=== PATIENT | male | born 1970 | race Caucasian/White ===

== ENCOUNTER 2016-12-07 10:40 | Inpatient (IN) | payer BC ==
[2016-12-07] MEDS ORDERED: Aspirin Low Dose CHEW TAB* 81 MG PO ONE (11:53)
[2016-12-07] MEDS ORDERED: NS 0.9% 1000 ML* 1,000 ML IV SCH (12:00)
[2016-12-07 12:01] LABS: Hematocrit 50 % (42-52); Mean Corpuscular HGB Conc 34 g/dl (31-36); Mean Corpuscular Hemoglobin 30 pg (27-31); Mean Corpuscular Volume 87 fL (80-94); Mean Platelet Volume 10 um3 (7.4-10.4); Red Blood Count 5.73 10^6/ul (4.0-5.4); Red Cell Distribution Width 14 % (10.5-15); White Blood Count 8.1 10^3/ul (3.5-10.8)
[2016-12-07 12:03] LABS: Urine Bilirubin Negative (Negative); Urine Glucose Negative (Negative); Urine Nitrite Negative (Negative)
[2016-12-07 12:14] LABS: Albumin 4.1 g/dL (3.2-5.2); BUN/Creatinine Ratio 10.7 (8-20); C Reactive Protein 2.78 mg/L (< 5.00); EGFR African American 127.7 (>60); EGFR Non-African American 99.3 (>60); Globulin 2.9 g/dL (2-4); Magnesium 2.2 mg/dL (1.9-2.7); Potassium 4.1 mmol/L (3.5-5.0); Total Bilirubin 0.7 mg/dL (0.2-1.0)
[2016-12-07 12:15] LABS: Troponin I 0.01 ng/mL (<0.04)
--- NOTE | 2016-12-07 12:25 | RAD ---
INDICATION: Chest pain. COMPARISON: Comparison is made with a prior chest x-ray study from August 28, 2015 TECHNIQUE: A portable view of the chest was obtained. FINDINGS: Cardiac and mediastinal contours appear to be within normal limits. The lungs are clear. No pleural effusion is seen. IMPRESSION: NO EVIDENCE FOR ACUTE DISEASE.
[2016-12-07 12:27] LABS: TSH (Thyroid Stimulating Horm) 2.04 mcIU/mL (0.34-5.60)
[2016-12-07] MEDS: Nicotine PATCH 21 MG/24 HR* PATCH TRANSDERM SCH (13:48)
--- NOTE | 2016-12-07 14:00 | ED ---
Frederick Pop Billy, scribed for Horace De Jesus MD on 12/07/16 at 1151 . HPI Chest Pain - HPI Summary HPI Summary: Patient is a 46 year-old male coming to [facility] for evaluation of intermittent chest pain for the last 4 days, worse today. Patient reports midsternal sharp, burning episodes lasting approximately 3-5 minutes. His episodes are more frequent and worse in severity in the mornings. Severity 8/10 at its worst. Pain radiates to the left arm and jaw. He reports shortness of breath and mild lightheadedness. Denies nausea or diaphoresis. Denies abdominal pain or leg pain /swelling. Denies history of blood clots. Family history is significant for cardiac disease. Patient also reports that he has uncontrolled atrial fibrillation. Patient takes 81mg ASA daily. He has not had any stress tests in the last 10 years, last stress test approximately 12 years ago. - History of Current Complaint Chief Complaint: EDChestPainROMI Time Seen by Provider: 12/07/16 11:46 Hx Obtained From: Patient Onset/Duration: Started Days Ago, Worse Since - this morning at 0630 Time of Onset: 06:30 Timing: Intermittent Initial Severity: Moderate Current Severity: Moderate Pain Intensity: 8 Pain Scale Used: 0-10 Numeric Chest Pain Location: Mid Sternal Chest Pain Radiates: Yes Chest Pain Radiates To:: Arm, Neck Character: Burning, Sharp/Stabbing Aggravating Factor(s): Nothing Alleviating Factor(s): Nothing Associated Signs and Symptoms: Positive: Chest Pain, Shortness of Breath, Lightheadedness. Negative: Diaphoresis, Nausea - Allergy/Home Medications Allergies/Adverse Reactions: Allergies Allergy/AdvReac Type Severity Reaction Status Date / Time Codeine Allergy Intermediate Rash Verified 12/07/16 12:01 PMH/Surg Hx/FS Hx/Imm Hx Endocrine/Hematology History: Denies: Hx Diabetes Cardiovascular History: Reports: Hx Hypercholesterolemia, Hx Hypertension, Other Cardiovascular Problems/Disorders - NEW ONSET A FIB Denies: Hx Congestive Heart Failure Respiratory History: Reports: Hx Asthma History: Denies: Hx Renal Disease Musculoskeletal History: Reports: Hx Arthritis - LEFT SHOULDER, Hx Back Problems - pt reports lower back pain and spasms Neurological History: Reports: Hx Headaches Psychiatric History: Reports: Hx Anxiety, Hx Depression Denies: Hx Panic Disorder - Surgical History Surgery Procedure, Year, and Place: RIGHT FOOT X3. LEFT WRIST Infectious Disease History: No Infectious Disease History: Denies: Traveled Outside the [place] in Last 30 Days - Family History Known Family History: Positive: Cardiac Disease - Both parents and grandparents with heart disease. - Social History Alcohol Use: Daily Alcohol Amount: 6 pk beer Substance Use Type: Reports: None Smoking Status (MU): Heavy Every Day Tobacco Smoker Type: Cigarettes Amount Used/How Often: 2 PPD Review of Systems Negative: Skin Diaphoresis Positive: Chest Pain Positive: Shortness Of Breath Negative: Nausea All Other Systems Reviewed And Are Negative: Yes Physical Exam Triage Information Reviewed: Yes Vital Signs On Initial Exam: Initial Vitals Temp Pulse Resp BP Pulse Ox 96.6 F 77 16 156/91 100 12/07/16 10:43 12/07/16 10:43 12/07/16 10:43 12/07/16 10:43 12/07/16 10:43 Vital Signs Reviewed: Yes Appearance: Positive: Well-Appearing, No Pain Distress Skin: Positive: Warm, Skin Color Reflects Adequate Perfusion, Dry Head/Face: Positive: Normal Head/Face Inspection Eyes: Positive: EOMI, IZABELLA ENT: Positive: Normal ENT inspection Neck: Positive: Supple, Nontender Respiratory/Lung Sounds: Positive: Clear to Auscultation, Breath Sounds Present Cardiovascular: Positive: RRR Abdomen Description: Positive: Nontender, Soft Bowel Sounds: Positive: Present Musculoskeletal: Positive: Normal, Strength/ROM Intact Neurological: Positive: Normal, Sensory/Motor Intact, Alert, Oriented to Person Place, Time Psychiatric: Positive: Affect/Mood Appropriate Diagnostics - Vital Signs Vital Signs Temp Pulse Resp BP Pulse Ox 12/07/16 11:06 62 12/07/16 11:00 77 14 152/99 98 12/07/16 10:58 74 12 98 12/07/16 10:56 145/83 12/07/16 10:43 96.6 F 77 16 156/91 100 - Laboratory Lab Results: Lab Results 12/07/16 12/07/16 12/07/16 Range/Units 11:29 11:29 11:29 WBC 8.1 (3.5-10.8) 10^3/ul RBC 5.73 H (4.0-5.4) 10^6/ul Hgb 17.0 (14.0-18.0) g/dl Hct 50 (42-52) % MCV 87 (80-94) fL MCH 30 (27-31) pg MCHC 34 (31-36) g/dl RDW 14 (10.5-15) % Plt Count 156 (150-450) 10^3/ul MPV 10 (7.4-10.4) um3 Neut % (Auto) 61.4 (38-83) % Lymph % (Auto) 24.3 L (25-47) % [place] % (Auto) 7.9 (1-9) % Eos % (Auto) 4.4 (0-6) % Baso % (Auto) 2.0 (0-2) % Absolute Neuts (auto) 5.0 (1.5-7.7) 10^3/ul Absolute Lymphs (auto) 2.0 (1.0-4.8) 10^3/ul Absolute Monos (auto) 0.6 (0-0.8) 10^3/ul Absolute Eos (auto) 0.4 (0-0.6) 10^3/ul Absolute Basos (auto) 0.2 (0-0.2) 10^3/ul Absolute Nucleated RBC 0.01 10^3/ul Nucleated RBC % 0.1 INR (Anticoag Therapy) 0.86 L (0.89-1.11) APTT 26.3 (26.0-36.3) seconds D-Dimer, Quantitative < 200 (Less Than 230) ng/mL Sodium (133-145) mmol/L Potassium (3.5-5.0) mmol/L Chloride (101-111) mmol/L Carbon Dioxide (22-32) mmol/L Anion Gap (2-11) mmol/L BUN (6-24) mg/dL Creatinine (0.67-1.17) mg/dL Est GFR ( Amer) (>60) Est GFR (Non-Af Amer) (>60) BUN/Creatinine Ratio (8-20) Glucose (70-100) mg/dL Lactic Acid (0.5-2.0) mmol/L Calcium (8.6-10.3) mg/dL Magnesium (1.9-2.7) mg/dL Total Bilirubin (0.2-1.0) mg/dL AST (13-39) U/L ALT (7-52) U/L Alkaline Phosphatase (34-104) U/L Total Creatine Kinase (10-223) U/L CK-MB (CK-2) (0.6-6.3) ng/mL Troponin I (<0.04) ng/mL C-Reactive Protein (< 5.00) mg/L B-Natriuretic Peptide 13 ( - 100) pg/mL Total Protein (6.4-8.9) g/dL Albumin (3.2-5.2) g/dL Globulin (2-4) g/dL Albumin/Globulin Ratio (1-3) Lipase (11.0-82.0) U/L TSH (0.34-5.60) mcIU/mL Urine Color Urine Appearance Urine pH (5-9) Ur Specific [place] (1.010-1.030) Urine Protein (Negative) Urine Ketones (Negative) Urine Blood (Negative) Urine Nitrate (Negative) Urine Bilirubin (Negative) Urine Urobilinogen (Negative) Ur Leukocyte Esterase (Negative) Urine Glucose (Negative) 12/07/16 12/07/16 12/07/16 Range/Units 11:29 11:29 11:29 WBC (3.5-10.8) 10^3/ul RBC (4.0-5.4) 10^6/ul Hgb (14.0-18.0) g/dl Hct (42-52) % MCV (80-94) fL MCH (27-31) pg MCHC (31-36) g/dl RDW (10.5-15) % Plt Count (150-450) 10^3/ul MPV (7.4-10.4) um3 Neut % (Auto) (38-83) % Lymph % (Auto) (25-47) % [place] % (Auto) (1-9) % Eos % (Auto) (0-6) % Baso % (Auto) (0-2) % Absolute Neuts (auto) (1.5-7.7) 10^3/ul Absolute Lymphs (auto) (1.0-4.8) 10^3/ul Absolute Monos (auto) (0-0.8) 10^3/ul Absolute Eos (auto) (0-0.6) 10^3/ul Absolute Basos (auto) (0-0.2) 10^3/ul Absolute Nucleated RBC 10^3/ul Nucleated RBC % INR (Anticoag Therapy) (0.89-1.11) APTT (26.0-36.3) seconds D-Dimer, Quantitative (Less Than 230) ng/mL Sodium 135 (133-145) mmol/L Potassium 4.1 (3.5-5.0) mmol/L Chloride 105 (101-111) mmol/L Carbon Dioxide 25 (22-32) mmol/L Anion Gap 5 (2-11) mmol/L BUN 9 (6-24) mg/dL Creatinine 0.84 (0.67-1.17) mg/dL Est GFR ( Amer) 127.7 (>60) Est GFR (Non-Af Amer) 99.3 (>60) BUN/Creatinine Ratio 10.7 (8-20) Glucose 95 (70-100) mg/dL Lactic Acid 0.9 (0.5-2.0) mmol/L Calcium 9.0 (8.6-10.3) mg/dL Magnesium 2.2 (1.9-2.7) mg/dL Total Bilirubin 0.70 (0.2-1.0) mg/dL AST 22 (13-39) U/L ALT 23 (7-52) U/L Alkaline Phosphatase 76 (34-104) U/L Total Creatine Kinase 110 (10-223) U/L CK-MB (CK-2) 1.9 (0.6-6.3) ng/mL Troponin I 0.01 (<0.04) ng/mL C-Reactive Protein 2.78 (< 5.00) mg/L B-Natriuretic Peptide ( - 100) pg/mL Total Protein 7.0 (6.4-8.9) g/dL Albumin 4.1 (3.2-5.2) g/dL Globulin 2.9 (2-4) g/dL Albumin/Globulin Ratio 1.4 (1-3) Lipase 58 (11.0-82.0) U/L TSH 2.04 (0.34-5.60) mcIU/mL Urine Color Yellow Urine Appearance Clear Urine pH 5.0 (5-9) Ur Specific [place] 1.004 L (1.010-1.030) Urine Protein Negative (Negative) Urine Ketones Negative (Negative) Urine Blood Negative (Negative) Urine Nitrate Negative (Negative) Urine Bilirubin Negative (Negative) Urine Urobilinogen Negative (Negative) Ur Leukocyte Esterase Negative (Negative) Urine Glucose Negative (Negative) Result Diagrams: 12/07/16 11:29 12/07/16 11:29 Lab Statement: Any lab studies that have been ordered have been reviewed, and results considered in the medical decision making process. - Radiology CXR Xray Interpretation: No Acute Changes Radiology Interpretation Completed By: Radiologist - EKG 1050 Cardiac Rate: NL - 77 bpm EKG Rhythm: Sinus Rhythm Ectopy: None EKG Interpretation: ST elevation in V1-V3 that appears to be early repol, TWI in III Re-Evaluation - Re-Evaluation First Eval Re-Evaluation Time: 13:20 Comment: Labs and imaging reviewed. Agrees with plan for admission. Chest Pain Course/Dx - Course Course Of Treatment: NO CRITICAL CARE TIME. Assessment/Plan: WELL IN ED. ADMIT HOSPITALIST STABLE. - Diagnoses Provider Diagnoses: Chest pain - Provider Notifications Discussed Care Of Patient With: Dr. Clark (hospitalist) @ [id number]: accepts admission. Discharge - Discharge Plan Condition: Stable Disposition: ADMITTED TO [facility] Referrals: Paulo Rangel MD [Primary Care Provider] - The documentation as recorded by the Frederick gutiérrez Billy accurately reflects the service I personally performed and the decisions made by me, Horace De Jesus MD.
[2016-12-07] MEDS ORDERED: Acetaminophen TAB* 325 MG PO PRN (15:10)
[2016-12-07] MEDS ORDERED: Ondansetron INJ* 2 MG/ML VIAL IV PRN (15:10)
[2016-12-07] MEDS ORDERED: Albuterol 2.5 MG/3 ML NEB.SOL* (0.083%) INH PRN (15:18)
[2016-12-07] MEDS ORDERED: Mouth Piece, Nicotine* 1 EACH CARTRIDGE INH PRN (15:25)
[2016-12-07] MEDS ORDERED: Mouth Piece, Nicotine* 1 EACH CARTRIDGE ONE (15:38)
[2016-12-07] MEDS ORDERED: Nicotine Inhaler* 10 MG AMP ONE (15:38)
[2016-12-07] MEDS: Nicotine Inhaler* 10 MG AMP INH PRN (15:41)
[2016-12-07] MEDS ORDERED: Mouth Piece, Nicotine* 1 EACH CARTRIDGE INH ONE (16:00)
[2016-12-07] MEDS ORDERED: LORazepam TAB(*) 1 MG PO SCH (16:00)
[2016-12-07 16:07] LABS: EGFR African American 117.9 (>60); EGFR Non-African American 91.7 (>60)
[2016-12-07] MEDS: Sucralfate TAB* 1 GM PO SCH (16:41)
[2016-12-07] MEDS: Nicotine Patch Removal NOTE FOLLOW UP SCH (21:50)
[2016-12-07] MEDS: Heparin VIAL(*) 5000 UNITS/ML VIAL (FIVE THOUSAND) SUBCUT SCH (21:53)
--- NOTE | 2016-12-07 22:06 | HP ---
HISTORY AND PHYSICAL: DATE OF ADMISSION: 12/07/16 PRIMARY CARE PROVIDER: Dr. Rangel. ATTENDING PHYSICIAN WHILE IN THE HOSPITAL: Ema Paiz MD* (report dictated by Robin Sotomayor NP). CHIEF COMPLAINT: Chest pain. HISTORY OF PRESENT ILLNESS: Mr. Donnelly is a 46-year-old male patient with a history of hypertension, hyperlipidemia, asthma, depression, AFib, and a history of back pain. He comes into the ER today stating in the last 3 days he has had intermittent chest discomfort starting in the center of his chest, described as a burning pain that radiates up into his jaw and down his arm. He says it is not associated with any activities as it can happen at any time. He denies any association with food and he says the duration lasts for seconds to minutes and the severity was worse today and that is why he decided to come in to be evaluated. He denied having any associated nausea, shortness of breath, or any abdominal pain and he denied becoming diaphoretic. He came in to the ED , was evaluated, and there was concern that this could represent ACS, so we were asked to evaluate for admission. He says the pain is gone now. He says that he had no relief with taking any GI medicine such as omeprazole which he tried today. There was concern because of his history of smoking, family history, and we were asked to evaluate for admission. PAST MEDICAL HISTORY: Significant for: 1. Hypertension. 2. Hyperlipidemia. 3. Asthma. 4. Depression. 5. AFib. 6. Chronic back pain. PAST SURGICAL HISTORY: 1. He has a history of foot surgery. 2. In addition to this, ORIF of his bilateral upper extremities. HOME MEDICATIONS: This is what he says he is takin. Aspirin 81 mg daily. 2. Lisinopril 10 mg daily. ALLERGIES TO MEDICATIONS: Include CODEINE. FAMILY HISTORY: His mother had hypertension. Father has a history of coronary artery disease. SOCIAL HISTORY: He is a 6-azqw-a-day smoker for about 20 years. History of cocaine use, but he says he has not used this in several years. Surrogate decision maker is his father and he is a forklift driver. REVIEW OF SYSTEMS: There is no documented fever. He denied having any significant weight change. There is no double vision. There is no ear discharge. He denies having any rhinorrhea. No sore throat. No thyroid enlargement. There is chest pain per my HPI. No orthopnea. No nocturnal dyspnea. There is no dyspnea on exertion. There is no abdominal pain. No nausea. No vomiting. No dysuria. No frequency. No seizure. No loss of consciousness. No pruritus and no skin ulcerations. Review of 14 systems completed, all others negative. PHYSICAL EXAMINATION GENERAL: At this time, Mr. Donnelly is a 46-year-old male patient. He is sitting in the hospital bed. He does not appear to be in any acute distress. VITAL SIGNS: Blood pressure 125/75, pulse 71, respirations 18, O2 sat 95%, and temperature 96.6. HEENT: Head: Atraumatic and normocephalic. Eyes: EOMs intact. Sclerae are anicteric and not pale. Throat: Oral mucosa appears to be moist. No oropharyngeal erythema. NECK: Supple. LUNGS: Clear to auscultation. No wheezes, rales, or rhonchi. HEART: Sounds S1, S2. Regular rate and rhythm. No murmurs, rubs, or gallops. ABDOMEN: Soft, flat, and nontender. Bowel sounds present. EXTREMITIES: Pulses 2+ throughout. No peripheral edema. NEUROLOGIC: He is awake, he is alert, he is oriented x3. Tongue midline. Transmitter Engineer are equal. No gross focal deficits. SKIN: Intact. LABORATORY DATA AND DIAGNOSTIC STUDIES: Today revealed WBC of 8.1, RBC of 5.73 , hemoglobin 17.0, hematocrit of 50, platelet count of 156. INR was 0.86. PTT of 26.3. D-dimer less than 200. Sodium 135, potassium 4.1, chloride of 105, bicarb 25, BUN 9, creatinine of 0.84, glucose 95, lactic 0.9, calcium 9.0, magnesium 2.2. Total bilirubin 0.7, AST 22, ALT 23, alk phos 76. CK 110. Troponin 0.01. TSH of 2.04. Urine was obtained, negative. He had a chest x-ray obtained today which revealed no evidence for acute disease. There was an EKG obtained today which showed a normal sinus rhythm, rate of 77. Inverted T wave in lead 3. He has J-point elevation in V5, but only one inflated in V6, looks like early repolarization. No significant changes are noted from the previous EKG, although he is not in atrial fibrillation currently. This was reviewed with the previous EKG, has had this elevation in the past. Old medical records were reviewed. ASSESSMENT AND PLAN: Mr. Donnelly is a 46-year-old male patient coming into the ER today with complaints of chest discomfort described as a burning, pressure, starting in the chest, going up the jaw and down the arm. Hospitalist service was asked to evaluate in admission. He will be admitted under observation status for: 1. Chest pain: At this point, this does not sound like it is cardiac. It sounds as if the pain is GI related, although he does have significant risk factors, so I think it is warranted to go ahead and do a stress test, troponins , EKG, and telemetry. We will start him on a baby aspirin. I am also going to put him on Carafate and a PPI to make sure to see if this helps. If the cardiac workup is negative, he will probably need an EGD, but this can be done as an outpatient. 2. Hypertension: Continue medications as prescribed. 3. Atrial fibrillation: Currently in sinus rhythm. He will need to follow with his primary. We will monitor him on telemetry. 4. History of chronic back pain: Continue current medical regimen. 5. Hyperlipidemia: We will check a lipid panel for the time being. 6. Asthma: Albuterol p.r.n. has been ordered. 7. Depression: Continue supportive care. 8. Bradycardia episode: He did have an episode where he went down to 58 when he was having the pain in the ED. It looked like a sinus rhythm. The plan at this point is just to monitor, he was asymptomatic. I suspect this is probably a vagal reaction due to the fact that he was having pain when it happened. We will just need to monitor. 9. DVT prophylaxis: He will be placed on heparin subcu. 10. Fluids, electrolytes, and nutrition: He can have a heart healthy diet. He is n.p.o. after midnight. 11. Code status: Full code. TIME SPENT: Time spent on the admission was 60 minutes; greater than half the time was spent [id number] with the patient obtaining my history and physical, other half of the time spent going over the plan of care with the patient and implementing plan of care. I did discuss the plan of care with my attending, Dr. Paiz; she is in agreement. ROBIN SOTOMAYOR NP CC: Dr. Rangel * [id number]/CPS #: [id number] STEPHANIE
[2016-12-08 04:52] LABS: Hematocrit 46 % (42-52); Mean Corpuscular HGB Conc 35 g/dl (31-36); Mean Corpuscular Hemoglobin 31 pg (27-31); Mean Corpuscular Volume 88 fL (80-94); Mean Platelet Volume 11 um3 (7.4-10.4); Red Blood Count 5.25 10^6/ul (4.0-5.4); Red Cell Distribution Width 15 % (10.5-15)
[2016-12-08 05:08] LABS: BUN/Creatinine Ratio 14.6 (8-20); EGFR African American 119.4 (>60); EGFR Non-African American 92.9 (>60); HDL Cholesterol 27.8 mg/dL
[2016-12-08 05:14] LABS: Potassium 3.9 mmol/L (3.5-5.0)
[2016-12-08] MEDS: Omeprazole CAP* 20 MG PO SCH (05:19)
[2016-12-08] MEDS: Heparin VIAL(*) 5000 UNITS/ML VIAL (FIVE THOUSAND) SUBCUT SCH ×2 (05:19→14:26)
[2016-12-08] MEDS: Lisinopril TAB* 10 MG PO SCH (07:18)
[2016-12-08] MEDS: Sucralfate TAB* 1 GM PO SCH ×3 (07:19→18:12)
[2016-12-08] MEDS: Nicotine PATCH 21 MG/24 HR* PATCH TRANSDERM SCH (07:19)
[2016-12-08] MEDS: Folic Acid TAB* 1 MG PO SCH (07:19)
[2016-12-08] MEDS: Multivitamins/Minerals TAB PO SCH (07:19)
[2016-12-08] MEDS: Aspirin EC Low Dose* 81 MG TAB.EC PO SCH (07:19)
[2016-12-08] MEDS: Thiamine TAB* 100 MG TAB PO SCH (07:20)
--- NOTE | 2016-12-08 10:36 | RAD ---
Edited for charges. INDICATION: Chest pain. COMPARISON: There are no prior studies available for comparison. Technique: A single day myocardial perfusion stress study was performed. Initially a resting study was performed. The patient was given an intravenous injection of 10.5 mCi of technetium 99m tetrofosmin and and the heart was imaged in multiple projections. The patient returned later in the day and under the direction of Dr. Ulloa, the patient was exercised to a peak heart rate of 156 beats per minute which was 89% of the maximum predicted heart rate. Subsequently the patient was given intravenous injection of 26.9 mCi of technetium 99m tetrofosmin and the heart was imaged in multiple projections. Images were reconstructed in the axial, sagittal and coronal planes and in a 3- D format. FINDINGS: There appears mild hypokinesis in the inferoseptal wall. The left ventricular ejection fraction is calculated to be 55%. Review of the images demonstrates a small to moderate-sized area of decreased activity in the inferior wall on the post exercise images which appears improved on the resting set of images suggestive of an area of ischemia. IMPRESSION: FINDINGS SUGGESTIVE OF A SMALL TO MODERATE SIZED AREA OF ISCHEMIA IN THE INFERIOR WALL. ASSESSMENT: Intermediate risk. Based on imaging criteria from ACC/AHA 2002 Guideline Update for the Management of Patients With Chronic Stable Angina Table 23. Noninvasive Risk Stratification. MTDD
[2016-12-08] MEDS ORDERED: NS 0.9% 1000 ML* 1,000 ML IV SCH ×2 (14:15→16:00)
[2016-12-08] MEDS: Metoprolol Tartrate TAB* 25 MG PO SCH ×2 (14:32→20:50)
--- NOTE | 2016-12-08 14:34 | PN ---
Subjective Date of Service: 12/08/16 Interval History: Pt reports worsening CP with stress test today reporting an intense burning sensation and pain radiating to left arm and jaw, some mild accompanied SOB. Denies diaphoresis. Reports his CP was relieved with nitro earlier. Patient had an abnormal nuc med stress test, now plan for cardiac cath with Dr. Ulloa this afternoon Objective Active Medications: Acetaminophen (Tylenol Tab*) 650 mg PO Q4H PRN PRN Reason: FEVER/PAIN Albuterol (Ventolin 2.5 Mg/3 Ml Neb.Sri*) 2.5 mg INH Q2H PRN PRN Reason: SOB/WHEEZING Aspirin (Aspirin Ec Low Dose*) 81 mg PO DAILY [facility] Last Admin: 12/08/16 07:19 Dose: 81 mg Atorvastatin Calcium (Lipitor*) 80 mg PO 1700 [facility] Folic Acid (Folvite Tab*) 1 mg PO DAILY [facility] Last Admin: 12/08/16 07:19 Dose: Not Given Sodium Chloride (Ns 0.9% 1000 Ml*) 1,000 mls @ 100 mls/hr IV .per rate [facility] Lisinopril (Prinivil Tab*) 10 mg PO DAILY [facility] Last Admin: 12/08/16 07:18 Dose: 10 mg Lorazepam (Ativan Tab(*)) 0 mg PO .PER WAM SCORE [facility] PRN Reason: Protocol Metoprolol Tartrate (Lopressor Tab*) 25 mg PO Q6H [facility] Multivitamins/Minerals (Theragran/Minerals Tab*) 1 tab PO DAILY [facility] Last Admin: 12/08/16 07:19 Dose: Not Given Nicotine (Nicotine Patch 21 Mg/24 Hr*) 1 patch TRANSDERM Q24HR [facility] Last Admin: 12/08/16 07:19 Dose: 1 patch Nicotine (Nicotine Inhaler*) 10 mg INH Q2H PRN PRN Reason: CRAVING Last Admin: 12/07/16 15:41 Dose: 10 mg Omeprazole (Prilosec Cap*) 20 mg PO DAILY@0600 [facility] Last Admin: 12/08/16 05:19 Dose: 20 mg Ondansetron HCl (Zofran Inj*) 4 mg IV Q6H PRN PRN Reason: NAUSEA Last Admin: 12/08/16 07:19 Dose: 4 mg Pharmacy Profile Note (Nicotine Patch Removal Note*) 1 note FOLLOW UP 2100 [facility] Last Admin: 12/07/16 21:50 Dose: 1 note Sucralfate (Carafate*) 1 gm PO 0600,1100,1600 [facility] Thiamine HCl (Vitamin B-1 Tab*) 100 mg PO DAILY [facility] Last Admin: 12/08/16 07:20 Dose: Not Given Vital Signs 12/07/16 12/07/16 12/07/16 15:07 17:10 17:32 Temperature 97.6 F 97.9 F Pulse Rate 66 71 71 Respiratory 14 16 16 Rate Blood Pressure 130/88 135/68 (mmHg) O2 Sat by Pulse 97 98 98 Oximetry 12/07/16 12/07/16 12/07/16 20:09 21:08 23:40 Temperature 97.9 F 98.1 F 97.9 F Pulse Rate 78 71 73 Respiratory 18 16 16 Rate Blood Pressure 139/78 122/52 134/74 (mmHg) O2 Sat by Pulse 100 99 97 Oximetry 12/08/16 12/08/16 12/08/16 02:17 03:28 05:20 Temperature 97.7 F 98.0 F 97.5 F Pulse Rate 63 61 48 Respiratory 16 16 16 Rate Blood Pressure 135/80 121/78 127/75 (mmHg) O2 Sat by Pulse 93 95 97 Oximetry 12/08/16 12/08/16 12/08/16 07:14 10:25 11:12 Temperature 97.5 F 97.7 F Pulse Rate 51 69 64 Respiratory 18 14 16 Rate Blood Pressure 160/90 121/73 (mmHg) O2 Sat by Pulse 97 97 99 Oximetry 12/08/16 13:59 Temperature 97.3 F Pulse Rate 71 Respiratory 19 Rate Blood Pressure 143/97 (mmHg) O2 Sat by Pulse Oximetry Oxygen Devices in Use Now: None Appearance: 46 yo male sitting in bed in NAD. A+O x3 Eyes: No Scleral Icterus, PERRLA Ears/Nose/Mouth/Throat: NL Teeth, Lips, Gums, Mucous Membranes Moist Neck: NL Appearance and Movements; NL JVP Respiratory: Symmetrical Chest Expansion and Respiratory Effort, Clear to Auscultation Cardiovascular: NL Sounds; No Murmurs; No JVD, RRR, No Edema Abdominal: NL Sounds; No Tenderness; No Distention Lymphatic: No Cervical Adenopathy Extremities: No Edema, No Clubbing, Cyanosis Skin: No Rash or Ulcers, No Nodules or Sclerosis Neurological: Alert and Oriented x 3, NL Sensation, NL Gait, NL Muscle Strength and Tone Lines/Tubes/Other Access: Clean, Dry and Intact Peripheral IV Nutrition: Taking PO's Result Diagrams: 12/08/16 04:15 12/08/16 04:25 Additional Lab and Data: Lab Results 12/07/16 12/07/16 12/07/16 Range/Units 11:29 11:29 11:29 WBC 8.1 (3.5-10.8) 10^3/ul RBC 5.73 H (4.0-5.4) 10^6/ul Hgb 17.0 (14.0-18.0) g/dl Hct 50 (42-52) % MCV 87 (80-94) fL MCH 30 (27-31) pg MCHC 34 (31-36) g/dl RDW 14 (10.5-15) % Plt Count 156 (150-450) 10^3/ul MPV 10 (7.4-10.4) um3 Neut % (Auto) 61.4 (38-83) % Lymph % (Auto) 24.3 L (25-47) % [place] % (Auto) 7.9 (1-9) % Eos % (Auto) 4.4 (0-6) % Baso % (Auto) 2.0 (0-2) % Absolute Neuts (auto) 5.0 (1.5-7.7) 10^3/ul Absolute Lymphs (auto) 2.0 (1.0-4.8) 10^3/ul Absolute Monos (auto) 0.6 (0-0.8) 10^3/ul Absolute Eos (auto) 0.4 (0-0.6) 10^3/ul Absolute Basos (auto) 0.2 (0-0.2) 10^3/ul Absolute Nucleated RBC 0.01 10^3/ul Nucleated RBC % 0.1 INR (Anticoag Therapy) 0.86 L (0.89-1.11) APTT 26.3 (26.0-36.3) seconds D-Dimer, Quantitative < 200 (Less Than 230) ng/mL Sodium (133-145) mmol/L Potassium (3.5-5.0) mmol/L Chloride (101-111) mmol/L Carbon Dioxide (22-32) mmol/L Anion Gap (2-11) mmol/L BUN (6-24) mg/dL Creatinine (0.67-1.17) mg/dL Est GFR ( Amer) (>60) Est GFR (Non-Af Amer) (>60) BUN/Creatinine Ratio (8-20) Glucose (70-100) mg/dL Lactic Acid (0.5-2.0) mmol/L Calcium (8.6-10.3) mg/dL Magnesium (1.9-2.7) mg/dL Total Bilirubin (0.2-1.0) mg/dL AST (13-39) U/L ALT (7-52) U/L Alkaline Phosphatase (34-104) U/L Total Creatine Kinase (10-223) U/L CK-MB (CK-2) (0.6-6.3) ng/mL Troponin I (<0.04) ng/mL C-Reactive Protein (< 5.00) mg/L B-Natriuretic Peptide 13 ( - 100) pg/mL Total Protein (6.4-8.9) g/dL Albumin (3.2-5.2) g/dL Globulin (2-4) g/dL Albumin/Globulin Ratio (1-3) Lipase (11.0-82.0) U/L TSH (0.34-5.60) mcIU/mL Urine Color Urine Appearance Urine pH (5-9) Ur Specific [place] (1.010-1.030) Urine Protein (Negative) Urine Ketones (Negative) Urine Blood (Negative) Urine Nitrate (Negative) Urine Bilirubin (Negative) Urine Urobilinogen (Negative) Ur Leukocyte Esterase (Negative) Urine Glucose (Negative) 12/07/16 12/07/16 12/07/16 Range/Units 11:29 11:29 11:29 WBC (3.5-10.8) 10^3/ul RBC (4.0-5.4) 10^6/ul Hgb (14.0-18.0) g/dl Hct (42-52) % MCV (80-94) fL MCH (27-31) pg MCHC (31-36) g/dl RDW (10.5-15) % Plt Count (150-450) 10^3/ul MPV (7.4-10.4) um3 Neut % (Auto) (38-83) % Lymph % (Auto) (25-47) % [place] % (Auto) (1-9) % Eos % (Auto) (0-6) % Baso % (Auto) (0-2) % Absolute Neuts (auto) (1.5-7.7) 10^3/ul Absolute Lymphs (auto) (1.0-4.8) 10^3/ul Absolute Monos (auto) (0-0.8) 10^3/ul Absolute Eos (auto) (0-0.6) 10^3/ul Absolute Basos (auto) (0-0.2) 10^3/ul Absolute Nucleated RBC 10^3/ul Nucleated RBC % INR (Anticoag Therapy) (0.89-1.11) APTT (26.0-36.3) seconds D-Dimer, Quantitative (Less Than 230) ng/mL Sodium 135 (133-145) mmol/L Potassium 4.1 (3.5-5.0) mmol/L Chloride 105 (101-111) mmol/L Carbon Dioxide 25 (22-32) mmol/L Anion Gap 5 (2-11) mmol/L BUN 9 (6-24) mg/dL Creatinine 0.84 (0.67-1.17) mg/dL Est GFR ( Amer) 127.7 (>60) Est GFR (Non-Af Amer) 99.3 (>60) BUN/Creatinine Ratio 10.7 (8-20) Glucose 95 (70-100) mg/dL Lactic Acid 0.9 (0.5-2.0) mmol/L Calcium 9.0 (8.6-10.3) mg/dL Magnesium 2.2 (1.9-2.7) mg/dL Total Bilirubin 0.70 (0.2-1.0) mg/dL AST 22 (13-39) U/L ALT 23 (7-52) U/L Alkaline Phosphatase 76 (34-104) U/L Total Creatine Kinase 110 (10-223) U/L CK-MB (CK-2) 1.9 (0.6-6.3) ng/mL Troponin I 0.01 (<0.04) ng/mL C-Reactive Protein 2.78 (< 5.00) mg/L B-Natriuretic Peptide ( - 100) pg/mL Total Protein 7.0 (6.4-8.9) g/dL Albumin 4.1 (3.2-5.2) g/dL Globulin 2.9 (2-4) g/dL Albumin/Globulin Ratio 1.4 (1-3) Lipase 58 (11.0-82.0) U/L TSH 2.04 (0.34-5.60) mcIU/mL Urine Color Yellow Urine Appearance Clear Urine pH 5.0 (5-9) Ur Specific [place] 1.004 L (1.010-1.030) Urine Protein Negative (Negative) Urine Ketones Negative (Negative) Urine Blood Negative (Negative) Urine Nitrate Negative (Negative) Urine Bilirubin Negative (Negative) Urine Urobilinogen Negative (Negative) Ur Leukocyte Esterase Negative (Negative) Urine Glucose Negative (Negative) Assess/Plan/Problems-Billing Assessment: 46 yo male with PMH of HTN, HLD, asthma, current tobacco abuse, afib , chronic back pain who presented 4/4 with c/o chest pain - Patient Problems (1) Chest pain Comment: - abnormal nuc medicine stress test, plan for cardiac cath this afternoon - negative troponins, no ekg changes - NPO - continue ASA, statin (2) Asthma Comment: controlled (3) Dyslipidemia Comment: - Abnormal lipid profile - continue high dose statin (4) HTN (hypertension) Comment: - controlled. continue lisinopril (5) Tobacco abuse Comment: - nicotine replacement - smoking cessation (6) Full code status (7) DVT prophylaxis Status and Disposition: inpatient with chest pain, cardiac cath with stent placement.
[2016-12-08] MEDS ORDERED: fentaNYL* 50 MCG/ML 2 ML VIAL (100 MCG VIAL) ONE ×2 (14:50→15:21)
[2016-12-08] MEDS ORDERED: VERAPAMIL 2.5 MG/ML 4 ML VIAL ONE (14:50)
[2016-12-08] MEDS ORDERED: Heparin(*) 1000 UNIT/ML 10 ML VIAL CATH LAB IV ONE (14:50)
[2016-12-08] MEDS ORDERED: Midazolam* 1 MG/ML 5 ML VIAL (5 MG) ONE (14:50)
[2016-12-08] MEDS ORDERED: Iohexol 350 (CONTRAST) 200 ML MDV IV ONE (14:50)
[2016-12-08] MEDS ORDERED: Heparin 2 UNITS/ML IVPREMIX* 2,000 ML IV ONE (14:51)
[2016-12-08] MEDS ORDERED: Lidocaine 1% INJ* 10 MG/ML 30 ML SDV ONE (14:51)
[2016-12-08] MEDS ORDERED: nitroGLYCERIN DRIP* 250 ML ONE (14:51)
[2016-12-08] MEDS ORDERED: Ticagrelor* 90 MG TAB PO ONE (15:26)
[2016-12-08] MEDS ORDERED: Nitroglycerin TAB 0.4 MG* 0.4 MG TAB SL PRN (15:56)
[2016-12-08] MEDS ORDERED: Zolpidem TAB* 5 MG PO PRN (16:00)
[2016-12-08] MEDS ORDERED: Atorvastatin* 40 MG TAB PO SCH (17:00)
[2016-12-08] MEDS ORDERED: Atorvastatin* 80 MG TAB PO SCH (17:00)
[2016-12-08] MEDS: Nicotine Patch Removal NOTE FOLLOW UP SCH (20:51)
[2016-12-08] MEDS: Nicotine Inhaler* 10 MG AMP INH PRN (20:51)
[2016-12-08] MEDS ORDERED: Ticagrelor* 90 MG TAB PO SCH (21:00)
--- NOTE | 2016-12-08 22:37 | CONS ---
INTERVENTIONAL CARDIOLOGY CONSULT NOTE: DATE OF CONSULT: 12/08/16 PRIMARY CARE PHYSICIAN: Dr. Rangel. HISTORY OF PRESENT ILLNESS: A 46-year-old male admitted with unstable angina. Interventional Cardiology was consulted because of unstable angina and abnormal stress test. He is a good historian, has no previous cardiac history. For the past 3 to 4 days, he has had recurring episodes of very typical angina, which he describes as a precordial chest discomfort, which radiates into his neck and his arms. This has been occurring at random, has been fairly brief in duration, lasting less than 5 to 10 minutes. He has not had any effort-related symptoms. However , he presented to the ER, was admitted. Today, he had a Domenic protocol stress test, where he exercised for approximately 8 minutes with reproduction of his angina, but no ST changes with exercise; however, in recovery he developed inferior [address] elevation in immediate recovery accompanied by severe angina, promptly relieved with sublingual nitroglycerin x1. Stress imaging showed small to moderate inferior wall reversible zone of ischemia. Currently, he is having vague, very mild waxing and waning chest discomfort. PAST MEDICAL HISTORY: Hypertension, hyperlipidemia, asthma, history of depression, history of apparently paroxysmal atrial fibrillation. PREHOSPITAL MEDICATIONS: 1. Aspirin 81 mg daily. 2. Lisinopril 10 mg daily. ALLERGIES: CODEINE. FAMILY HISTORY: Positive for premature coronary disease. SOCIAL HISTORY: He is a smoker. REVIEW OF SYSTEMS: General: No weight loss. No fever. REHABILITATION THERAPIST: No history of TIA or CVA. GI: No peptic ulcer disease or bleeding, he has been tolerating aspirin daily. : Negative. Circulatory: No claudication. Remainder all negative. PHYSICAL EXAMINATION: He is a well-developed, somewhat overweight, well- appearing male, numerous tattoos. His BP 143/97, heart rate 60s to 70s, sinus rhythm. His lungs are clear to percussion, he has a few rhonchi. No wheezes. No rales. JVP and carotids are normal. No bruits. HEENT is unremarkable without xanthelasma, scleral injection, or jaundice. EOMs are normal. Cranial nerves grossly intact. Cardiac Exam: Chest wall is not tender, apex and RV not palpable, normal S1 and S2. No gallop, murmur, or rub. The abdomen is soft and nontender. No bruit. I cannot feel the aorta or liver edge. Femoral pulses are 2+. No bruits. Extremities: Radial pulses are 2+, pedal pulses are 2+. He has no cyanosis, clubbing, or edema. Skin is warm and perfused. Psych : He is oriented and appropriate. DIAGNOSTIC STUDIES/LABS: His CBC is normal, BMP is normal, cholesterol 167 with high triglycerides at 495. Direct LDL is pending, HDL is low at 27.8. Chest x-ray was read as unremarkable. EKG shows no acute ST-T wave changes. His troponins are 0.01, 0, 0. IMPRESSION: 1. Unstable angina. He has a STAN score of 3. Stress imaging shows inferior ischemia, he had ST elevation in recovery. He likely has high-grade right coronary artery stenosis. He has continued to have symptoms at rest. We discussed catheterization, possible need for revascularization, which is appropriate based on AUC criteria. We discussed the procedure, risks including the need for bypass grafting, [place], CVA, bleeding, transfer to higher level of care, etc. We also reviewed the need for dual-antiplatelet therapy if he has a stent placed. 2. Dyslipidemia. His LDL is pending. 3. Hypertension. 4. History of paroxysmal atrial fibrillation, apparently without recurrence. CC: Dr. Rangel; Roger Ulloa MD* [id number]/[facility] #: [id number] MTDThomas
[2016-12-09] MEDS: Metoprolol Tartrate TAB* 25 MG PO SCH ×2 (02:44→07:25)
[2016-12-09] MEDS: Sucralfate TAB* 1 GM PO SCH (06:42)
[2016-12-09] MEDS: Omeprazole CAP* 20 MG PO SCH (06:42)
[2016-12-09 07:10] LABS: BUN/Creatinine Ratio 18.1 (8-20); Blood Urea Nitrogen 15 mg/dL (6-24); CO2 Carbon Dioxide 23 mmol/L (22-32); Calcium 8.8 mg/dL (8.6-10.3); Chloride 106 mmol/L (101-111); EGFR African American 129.4 (>60); EGFR Non-African American 100.6 (>60); Glucose 97 mg/dL (70-100); Sodium 136 mmol/L (133-145)
[2016-12-09] MEDS: Folic Acid TAB* 1 MG PO SCH (07:25)
[2016-12-09] MEDS: Aspirin EC Low Dose* 81 MG TAB.EC PO SCH (07:25)
[2016-12-09] MEDS: Nicotine PATCH 21 MG/24 HR* PATCH TRANSDERM SCH (07:25)
[2016-12-09] MEDS: Lisinopril TAB* 10 MG PO SCH (07:25)
[2016-12-09] MEDS: Multivitamins/Minerals TAB PO SCH (07:25)
[2016-12-09] MEDS: Thiamine TAB* 100 MG TAB PO SCH (07:25)
--- NOTE | 2016-12-09 07:57 | DCNOTE ---
Subjective Date of Service: 12/09/16 Interval History: Patient reports he has had no further CP since stent placement. Denies SOB, cough, orthopnea. NO fevers or chils. Reports good appetite. No N/V/D. Objective Active Medications: Acetaminophen (Tylenol Tab*) 650 mg PO Q4H PRN PRN Reason: FEVER/PAIN Albuterol (Ventolin 2.5 Mg/3 Ml Neb.Sri*) 2.5 mg INH Q2H PRN PRN Reason: SOB/WHEEZING Aspirin (Aspirin Ec Low Dose*) 81 mg PO DAILY [facility] Last Admin: 12/09/16 07:25 Dose: 81 mg Atorvastatin Calcium (Lipitor*) 80 mg PO 1700 [facility] Last Admin: 12/08/16 18:06 Dose: 80 mg Folic Acid (Folvite Tab*) 1 mg PO DAILY [facility] Last Admin: 12/09/16 07:25 Dose: 1 mg Lisinopril (Prinivil Tab*) 10 mg PO DAILY [facility] Last Admin: 12/09/16 07:25 Dose: 10 mg Lorazepam (Ativan Tab(*)) 0 mg PO .PER WAM SCORE [facility] PRN Reason: Protocol Metoprolol Tartrate (Lopressor Tab*) 25 mg PO Q6H [facility] Last Admin: 12/09/16 07:25 Dose: 25 mg Multivitamins/Minerals (Theragran/Minerals Tab*) 1 tab PO DAILY [facility] Last Admin: 12/09/16 07:25 Dose: 1 tab Nicotine (Nicotine Patch 21 Mg/24 Hr*) 1 patch TRANSDERM Q24HR [facility] Last Admin: 12/09/16 07:25 Dose: 1 patch Nicotine (Nicotine Inhaler*) 10 mg INH Q2H PRN PRN Reason: CRAVING Last Admin: 12/08/16 20:51 Dose: 10 mg Nitroglycerin (Nitroglycerin Tab 0.4 Mg*) 0.4 mg SL Q5M PRN PRN Reason: ANGINA Omeprazole (Prilosec Cap*) 20 mg PO DAILY@0600 [facility] Last Admin: 12/09/16 06:42 Dose: 20 mg Ondansetron HCl (Zofran Inj*) 4 mg IV Q6H PRN PRN Reason: NAUSEA Last Admin: 12/08/16 07:19 Dose: 4 mg Pharmacy Profile Note (Nicotine Patch Removal Note*) 1 note FOLLOW UP 2100 [facility] Last Admin: 12/08/16 20:51 Dose: 1 note Sucralfate (Carafate*) 1 gm PO 0600,1100,1600 [facility] Last Admin: 12/09/16 06:42 Dose: 1 gm Thiamine HCl (Vitamin B-1 Tab*) 100 mg PO DAILY [facility] Last Admin: 12/09/16 07:25 Dose: 100 mg Zolpidem Tartrate (Ambien Tab*) 5 mg PO BEDTIME PRN PRN Reason: SLEEP Vital Signs 12/09/16 12/09/16 12/09/16 06:15 06:30 06:45 Temperature Pulse Rate 51 56 59 Respiratory 16 14 18 Rate Blood Pressure (mmHg) O2 Sat by Pulse 97 97 97 Oximetry 12/09/16 12/09/16 12/09/16 07:00 07:12 07:13 Temperature Pulse Rate 59 Respiratory 13 17 Rate Blood Pressure 117/87 (mmHg) O2 Sat by Pulse 97 96 Oximetry 12/09/16 12/09/16 07:23 07:30 Temperature 97.3 F Pulse Rate Respiratory 19 Rate Blood Pressure (mmHg) O2 Sat by Pulse Oximetry Oxygen Devices in Use Now: None Appearance: 46 yo male laying in bed resting in NAD A+O x3 Eyes: No Scleral Icterus, PERRLA Ears/Nose/Mouth/Throat: NL Teeth, Lips, Gums Neck: NL Appearance and Movements; NL JVP Respiratory: Symmetrical Chest Expansion and Respiratory Effort, Clear to Auscultation Cardiovascular: NL Sounds; No Murmurs; No JVD, RRR, No Edema Abdominal: NL Sounds; No Tenderness; No Distention Extremities: No Edema, No Clubbing, Cyanosis Skin: - - right wrist cath site appears Result Diagrams: 12/08/16 04:15 12/09/16 07:38 Additional Lab and Data: Lab Results 12/07/16 12/07/16 12/07/16 Range/Units 11:29 11:29 11:29 WBC 8.1 (3.5-10.8) 10^3/ul RBC 5.73 H (4.0-5.4) 10^6/ul Hgb 17.0 (14.0-18.0) g/dl Hct 50 (42-52) % MCV 87 (80-94) fL MCH 30 (27-31) pg MCHC 34 (31-36) g/dl RDW 14 (10.5-15) % Plt Count 156 (150-450) 10^3/ul MPV 10 (7.4-10.4) um3 Neut % (Auto) 61.4 (38-83) % Lymph % (Auto) 24.3 L (25-47) % [place] % (Auto) 7.9 (1-9) % Eos % (Auto) 4.4 (0-6) % Baso % (Auto) 2.0 (0-2) % Absolute Neuts (auto) 5.0 (1.5-7.7) 10^3/ul Absolute Lymphs (auto) 2.0 (1.0-4.8) 10^3/ul Absolute Monos (auto) 0.6 (0-0.8) 10^3/ul Absolute Eos (auto) 0.4 (0-0.6) 10^3/ul Absolute Basos (auto) 0.2 (0-0.2) 10^3/ul Absolute Nucleated RBC 0.01 10^3/ul Nucleated RBC % 0.1 INR (Anticoag Therapy) 0.86 L (0.89-1.11) APTT 26.3 (26.0-36.3) seconds D-Dimer, Quantitative < 200 (Less Than 230) ng/mL Sodium (133-145) mmol/L Potassium (3.5-5.0) mmol/L Chloride (101-111) mmol/L Carbon Dioxide (22-32) mmol/L Anion Gap (2-11) mmol/L BUN (6-24) mg/dL Creatinine (0.67-1.17) mg/dL Est GFR ( Amer) (>60) Est GFR (Non-Af Amer) (>60) BUN/Creatinine Ratio (8-20) Glucose (70-100) mg/dL Lactic Acid (0.5-2.0) mmol/L Calcium (8.6-10.3) mg/dL Magnesium (1.9-2.7) mg/dL Total Bilirubin (0.2-1.0) mg/dL AST (13-39) U/L ALT (7-52) U/L Alkaline Phosphatase (34-104) U/L Total Creatine Kinase (10-223) U/L CK-MB (CK-2) (0.6-6.3) ng/mL Troponin I (<0.04) ng/mL C-Reactive Protein (< 5.00) mg/L B-Natriuretic Peptide 13 ( - 100) pg/mL Total Protein (6.4-8.9) g/dL Albumin (3.2-5.2) g/dL Globulin (2-4) g/dL Albumin/Globulin Ratio (1-3) Lipase (11.0-82.0) U/L TSH (0.34-5.60) mcIU/mL Urine Color Urine Appearance Urine pH (5-9) Ur Specific [place] (1.010-1.030) Urine Protein (Negative) Urine Ketones (Negative) Urine Blood (Negative) Urine Nitrate (Negative) Urine Bilirubin (Negative) Urine Urobilinogen (Negative) Ur Leukocyte Esterase (Negative) Urine Glucose (Negative) 12/07/16 12/07/16 12/07/16 Range/Units 11:29 11:29 11:29 WBC (3.5-10.8) 10^3/ul RBC (4.0-5.4) 10^6/ul Hgb (14.0-18.0) g/dl Hct (42-52) % MCV (80-94) fL MCH (27-31) pg MCHC (31-36) g/dl RDW (10.5-15) % Plt Count (150-450) 10^3/ul MPV (7.4-10.4) um3 Neut % (Auto) (38-83) % Lymph % (Auto) (25-47) % [place] % (Auto) (1-9) % Eos % (Auto) (0-6) % Baso % (Auto) (0-2) % Absolute Neuts (auto) (1.5-7.7) 10^3/ul Absolute Lymphs (auto) (1.0-4.8) 10^3/ul Absolute Monos (auto) (0-0.8) 10^3/ul Absolute Eos (auto) (0-0.6) 10^3/ul Absolute Basos (auto) (0-0.2) 10^3/ul Absolute Nucleated RBC 10^3/ul Nucleated RBC % INR (Anticoag Therapy) (0.89-1.11) APTT (26.0-36.3) seconds D-Dimer, Quantitative (Less Than 230) ng/mL Sodium 135 (133-145) mmol/L Potassium 4.1 (3.5-5.0) mmol/L Chloride 105 (101-111) mmol/L Carbon Dioxide 25 (22-32) mmol/L Anion Gap 5 (2-11) mmol/L BUN 9 (6-24) mg/dL Creatinine 0.84 (0.67-1.17) mg/dL Est GFR ( Amer) 127.7 (>60) Est GFR (Non-Af Amer) 99.3 (>60) BUN/Creatinine Ratio 10.7 (8-20) Glucose 95 (70-100) mg/dL Lactic Acid 0.9 (0.5-2.0) mmol/L Calcium 9.0 (8.6-10.3) mg/dL Magnesium 2.2 (1.9-2.7) mg/dL Total Bilirubin 0.70 (0.2-1.0) mg/dL AST 22 (13-39) U/L ALT 23 (7-52) U/L Alkaline Phosphatase 76 (34-104) U/L Total Creatine Kinase 110 (10-223) U/L CK-MB (CK-2) 1.9 (0.6-6.3) ng/mL Troponin I 0.01 (<0.04) ng/mL C-Reactive Protein 2.78 (< 5.00) mg/L B-Natriuretic Peptide ( - 100) pg/mL Total Protein 7.0 (6.4-8.9) g/dL Albumin 4.1 (3.2-5.2) g/dL Globulin 2.9 (2-4) g/dL Albumin/Globulin Ratio 1.4 (1-3) Lipase 58 (11.0-82.0) U/L TSH 2.04 (0.34-5.60) mcIU/mL Urine Color Yellow Urine Appearance Clear Urine pH 5.0 (5-9) Ur Specific [place] 1.004 L (1.010-1.030) Urine Protein Negative (Negative) Urine Ketones Negative (Negative) Urine Blood Negative (Negative) Urine Nitrate Negative (Negative) Urine Bilirubin Negative (Negative) Urine Urobilinogen Negative (Negative) Ur Leukocyte Esterase Negative (Negative) Urine Glucose Negative (Negative) Microbiology and Other Data: Microbiology 12/08/16 16:33 Nasal Screen MRSA (PCR)(JAGDEEP) - Final Nasal Mrsa Negative Assess/Plan/Problems-Billing Assessment: 46 yo male with PMH of HTN, HLD, asthma, current tobacco abuse, afib , chronic back pain who presented 4/4 with c/o chest pain - Patient Problems (1) Chest pain Comment: - Unstable angina with abnormal nuc medicine stress test leading to cardiac cath yesterday in which a drug eluding stent was placed in his RCA - negative troponins - HgA1c 5.2 - continue ASA, statin, Effient, BB (2) Asthma Comment: controlled (3) Dyslipidemia Comment: - Abnormal lipid profile - continue high dose statin (4) HTN (hypertension) Comment: - controlled. continue lisinopril, BB (5) Tobacco abuse Comment: - nicotine replacement - smoking cessation - (6) Full code status (7) DVT prophylaxis Status and Disposition: inpatient with unstable angina cardiac cath with stent placement. Plan for DC to home
[2016-12-09] MEDS ORDERED: CMC Prasugrel (NF) 10 MG PO SCH (09:00)
[2016-12-09 10:58] VITALS: BP 140/83
[2016-12-09] MEDS ORDERED: Metoprolol Tartrate TAB* 25 MG PO SCH (21:00)
[2016-12-10] MEDS ORDERED: CMC Pantoprazole TAB (NF) 40 MG TAB PO SCH (06:00)
--- NOTE | 2016-12-11 01:05 | CATH ---
CC: Dr. Rangel; Dr. Roger Ulloa CARDIAC CATH: DATE OF PROCEDURE: 12/08/16 PRIMARY CARE PHYSICIAN: Dr. Rangel. HISTORY: A 46-year-old male with unstable angina, stress imaging was accompanied by angina, and in recovery inferior wall ST segment elevation resolved with sublingual nitroglycerin. Imaging showed a [id number] inferior wall zone of ischemia. By AUC criteria, revascularization of culprit vessel is appropriate. PROCEDURE ACCESS: Right radial artery sheath 6-F slender. MEDICATIONS: 1. Subcu lidocaine. 2. IV versed. 3. IV fentanyl. 4. IV Benadryl. 5. Solu-Medrol 40 IV for history of contrast. 6. Heparin 3000 units. 7. Nitroglycerin 300 mcg. 8. Verapamil 3 mg IA. 9. Brilinta 180 mg p.o. loading dose. 10. Heparin 3000 units IV. 11. Nitroglycerin 200 mcg IC. DIAGNOSTIC CATHETER: 5F TIG4, 5 F pigtail. GUIDING CATHETER: RCA, 6F KR3H, wire 14 BMW used to deploy a 4 x 16 synergy drug- eluting stent proximal RCA, 16 atmospheres 30 seconds, post dilated with a 4 x 15 noncompliant balloon 24 atmospheres 35 seconds. HEMODYNAMICS: Initial BP 174/104, LV 128/11-15, no aortic valve gradient on pullback. ANGIOGRAPHY: 1. Left main: The left main is normal in size and length, has minimal distal taper, no significant stenosis. 2. LAD: The LAD is [id number], extends to the apex, it supplies a moderate diagonal and a smaller second diagonal, the first diagonal has less than 50% ostial stenosis. 3. Circumflex: The circumflex is moderate, not dominant, with a high moderate first marginal, which is minimal proximal taper, the circumflex distally supplies a small posterior lateral and ends with a moderate posterior lateral. The circumflex has no significant stenosis. 4. RCA: The RCA is large, dominant with a large distribution, has a 90% fairly short eccentric stenosis proximally, distal flow is STAN-2. 5. The PDA is moderate followed by 2 moderate posterior laterals. LV gram: Wall motion is normal, estimated LVEF 55% to 60%. After proximal RCA stent placement and post dilatation, distal flow is STAN-3, there is residual stenosis, there is no loss of side branches. Myocardial blush is normal. CONCLUSION: 1. Single vessel disease, RCA with unstable angina, ST elevation on exercise stress test and recovery, and an intermediate risk, stress imaging study. Excellent angiographic result after drug-eluting stent placement. The distal RCA, first posterolateral branch has a less than 50% tubular stenosis after IC nitroglycerin. 2. Normal LV systolic function. 3. Successful right radial artery access. [id number]/[facility] #: [id number] [facility]
== END 2016-12-09 11:33 | disposition home or self-care (01) | DRG 175 ==
LOC: ED 10:40 → MEDTELE 13:25 → OBSVTOIN 12-08 13:00 → ICU 12-08 15:56
PROVIDERS: ADMIT Internal Medicine; ATTEND Internal Medicine Cardiovascular Disease
PROC: B2111ZZ Fluoroscopy of Multiple Coronary Arteries using Low Osmolar Contrast (ICD-10-PCS; 2016-12-08)
PROC: B2151ZZ Fluoroscopy of Left Heart using Low Osmolar Contrast (ICD-10-PCS; 2016-12-08)
PROC: 3E073GC Introduction of Other Therapeutic Substance into Coronary Artery, Percutaneous Approach (ICD-10-PCS; 2016-12-08)
PROC: 027034Z Dilation of Coronary Artery, One Artery with Drug-eluting Intraluminal Device, Percutaneous Approach (ICD-10-PCS; principal; 2016-12-08 14:45)
PROC: 4A023N7 Measurement of Cardiac Sampling and Pressure, Left Heart, Percutaneous Approach (ICD-10-PCS; 2016-12-08 14:45)
DX: I25.110 Atherosclerotic heart disease of native coronary artery with unstable angina pectoris (principal); R00.1 Bradycardia, unspecified; E78.5 Hyperlipidemia, unspecified; J45.909 Unspecified asthma, uncomplicated; G89.29 Other chronic pain; M54.9 Dorsalgia, unspecified; F17.210 Nicotine dependence, cigarettes, uncomplicated; M19.012 Primary osteoarthritis, left shoulder; F41.9 Anxiety disorder, unspecified; F32.9 Major depressive disorder, single episode, unspecified; I48.0 Paroxysmal atrial fibrillation; E66.3 Overweight; Z68.27 Body mass index [BMI] 27.0-27.9, adult; Z82.49 Family history of ischemic heart disease and other diseases of the circulatory system; Z88.6 Allergy status to analgesic agent
CPT/HCPCS: 36415; 71010; 78452; 80048; 80053; 80061; 81003; 82550; 82553; 82565; 83036; 83605; 83690; 83721; 83735; 83880; 84443; 84484; 84520; 85025; 85379; 85610; 85730; 86140; 87641; 93005; 93017; 93458; 94760; 99406; A9270-GY; A9502; C1725; C1769; C1876; C1887; C9600-RC; G0378; J1644; J2001; J2250; J2405; J3010

== ENCOUNTER 2017-03-15 22:07 | Emergency (ER) | payer BC ==
[2017-03-16] MEDS ORDERED: Gabapentin CAP(*) 300 MG PO ONE (00:47)
[2017-03-16] MEDS ORDERED: HYDROcodone/ACETAMIN 5-325 MG* 1 TAB PO ONE (00:48)
[2017-03-16 01:17] VITALS: BP 162/97
--- NOTE | 2017-03-16 02:35 | ED ---
Back Pain - HPI Summary HPI Summary: Patient presents with lumbar pain x 1 week. He was seen by his PCP who ordered an MRI of the spine, but patient states he is unable to get this test for days to weeks. HE notes to 04/14 pain while sitting or standing and 09/14 while laying flat. Pain is located to the lower spine and radiates to the left leg with pain, numbness and tingling. Denies trauma or injury. He has never been dx with back problems and has had no surgeries. He has been taking Flexeril and lidocaine patches without relief. He has not tried pain management. Denies bladder or bowel dysfunction. Otherwise healthy. Smoker, drinks occasionally and lives with family. - History of Current Complaint Chief Complaint: EDBackInjuryPain Stated Complaint: BACK PAIN Time Seen by Provider: 03/15/17 22:20 Hx Obtained From: Patient Onset/Duration: Sudden Onset Onset/Duration: Started Weeks Ago Timing: Constant Back Pain Location: Is Discrete @ - lower spine radiating to the left leg Severity Initially: Moderate Severity Currently: Moderate Pain Intensity: 3 Pain Scale Used: 0-10 Numeric Character: Aching, Throbbing Aggravating Symptom(s): Movement, Lifting, Bending Alleviating Symptom(s): Rest, Position Associated Signs And Symptoms: Positive: Negative, Numbness, Tingling - Risk Factors AAA Risk Factors: Negative TAD Risk Factors: Negative Cauda Equina Risk Factors: Negative Epidural Abscess Risk Factors: Negative - Allergies/Home Medications Allergies/Adverse Reactions: Allergies Allergy/AdvReac Type Severity Reaction Status Date / Time Codeine Allergy Intermediate Rash Verified 03/15/17 22:11 PMH/Surg Hx/FS Hx/Imm Hx Previously Healthy: Yes Endocrine/Hematology History: Denies: Hx Diabetes Cardiovascular History: Reports: Hx Angina, Hx Hypercholesterolemia, Hx Hypertension, Other Cardiovascular Problems/Disorders - NEW ONSET A FIB Denies: Hx Congestive Heart Failure, Hx Coronary Artery Disease, Hx Myocardial Infarction, Hx Valvular Heart Disease Respiratory History: Reports: Hx Asthma Denies: Hx Chronic Obstructive Pulmonary Disease (COPD) History: Denies: Hx Renal Disease Musculoskeletal History: Reports: Hx Arthritis - LEFT SHOULDER, Hx Back Problems - pt reports lower back pain and spasms Sensory History: Denies: Hx Contacts or Glasses, Hx Hearing Aid Opthamlomology History: Denies: Hx Contacts or Glasses Neurological History: Reports: Hx Headaches Psychiatric History: Reports: Hx Anxiety, Hx Depression Denies: Hx Panic Disorder - Surgical History Surgery Procedure, Year, and Place: RIGHT FOOT X3. LEFT WRIST - Immunization History Hx Pertussis Vaccination: No Immunizations Up to Date: Unable to Obtain/Confirm Infectious Disease History: No Infectious Disease History: Denies: Traveled Outside the [place] in Last 30 Days - Family History Known Family History: Positive: Cardiac Disease - Both parents and grandparents with heart disease. - Social History Occupation: Employed Full-time Lives: With Family Alcohol Use: Daily Alcohol Amount: 6-12 pack of beer (12 oz cans) per day Hx Substance Use: No Substance Use Type: Reports: None Smoking Status (MU): Heavy Every Day Tobacco Smoker Type: Cigarettes Amount Used/How Often: 2-3 packs per day Have You Smoked in the Last Year: Yes Review of Systems Constitutional: Negative Eyes: Negative Cardiovascular: Negative Respiratory: Negative Positive: no symptoms reported, see HPI Musculoskeletal: Negative Neurological: Negative Psychological: Normal All Other Systems Reviewed And Are Negative: Yes Physical Exam Triage Information Reviewed: Yes Vital Signs On Initial Exam: Initial Vitals Temp Pulse Resp BP Pulse Ox 97.8 F 100 18 149/99 100 03/15/17 22:11 03/15/17 22:11 03/15/17 22:11 03/15/17 22:11 03/15/17 22:11 Vital Signs Reviewed: Yes Appearance: Positive: Well-Appearing, No Pain Distress, Well-Nourished Skin: Positive: Warm, Skin Color Reflects Adequate Perfusion Head/Face: Positive: Normal Head/Face Inspection Eyes: Positive: EOMI, IZABELLA, Conjunctiva Clear Neck: Positive: Supple, Nontender, No Lymphadenopathy Respiratory/Lung Sounds: Positive: Clear to Auscultation, Breath Sounds Present Cardiovascular: Positive: Normal, RRR, Pulses are Symmetrical in both Upper and Lower Extremities Musculoskeletal: Positive: Other - Thorough physical exam was performed, focusing on thoracic and lumbar special tests and ROM. Due to patient pain around injury, physical exam was limited. Limited ROM. Flip Test negative. Straight leg raise positive. Kernig test positive. Negative Babinksi. Hip flexion and extension, knee extension, dorsiflexion, great toe extension and plantar flexion intact. Rotating at hips limited d/t pain. Nerve roots L4-S2 reflexes intact. L1-S2 nerve root sensory intact. No saddle anesthesia. Gait normal. Neurological: Positive: Sensory/Motor Intact, Speech Normal Psychiatric: Positive: Normal AVPU Assessment: Alert - Benedict Coma Scale Best Eye Response: 4 - Spontaneous Best Motor Response: 6 - Obeys Commands Best Verbal Response: 5 - Oriented Diagnostics - Vital Signs Vital Signs Temp Pulse Resp BP Pulse Ox 03/16/17 01:10 97.7 F 63 17 162/97 03/15/17 22:30 98.3 F 68 18 140/93 96 03/15/17 22:11 97.8 F 100 18 149/99 100 - Laboratory Lab Statement: Any lab studies that have been ordered have been reviewed, and results considered in the medical decision making process. Back Pain Course/Dx - Course Course Of Treatment: CT shows L5-S1 paramedian disc herniation impressing slightly on the left anterior canal and on the left S1 nerve root. Gabapentin 300mg at bedtime added to regimine and pain meds given, although encouraged only take for breakthrough pain. Patient agrees to follow up. - Diagnoses Differential Diagnosis/HQI/PQRI: Positive: Herniated Disc, Strain, Sprain Provider Diagnoses: Herniated disc Discharge - Discharge Plan Condition: Stable Disposition: HOME Prescriptions: Gabapentin CAP(*) [Neurontin 300 CAP(*)] 300 mg PO BEDTIME #15 cap oxyCODONE/Acetamin 10/325(NF) [Percocet 10/325 (NF)] 1 tab PO Q6H #12 tab MDD 4 Patient Education Materials: Lumbar Disc Herniation (ED), Lower Back Exercises (ED) Referrals: Julio Hodges MD [Medical Doctor] - Paulo Rangel MD [Primary Care Provider] - Additional Instructions: Dx. Disc Herniation I have given you a referral to Dr. Hodges for further evaluation. Gabapentin 300mg at bedtime Oxycodone-Acetaminophen - This medication may make you drowsy and do not drive or operate machinery with this medication. Only take this medication for breakthrough pain which is not well controlled with over the counter ibuprofen or tylenol. Ibuprofen 600mg three times daily with meals for discomfort. Return to ED if symptoms worsen or fail to improve, notice worsening swelling, warmth or redness around the joint, develop fever, or pain is uncontrolled with OTC medications. Moist heat to the area for comfort. Warm showers or baths may improve symptoms. It is important to remain mobile as tolerated to prevent stiffening of the joints and delay healing. Follow up with your PCP. If symptoms remain for > 6 weeks, please seek special medical attention from an orthopedic physician.
--- NOTE | 2017-03-16 07:46 | RAD ---
HISTORY: Back pain COMPARISONS: None TECHNIQUE: Multiple contiguous axial CT scans were obtained of the lumbar spine without intravenous contrast, with coronal and sagittal multiplanar reformations. FINDINGS: SPINAL CANAL: Evaluation of the central canal is limited on CT technique; however, there is no obvious canalicular mass or epidural hemorrhage. 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 ALIGNMENT: The alignment is normal. VERTEBRAL BODIES: The vertebral bodies are preserved in height. The bones are normal in attenuation. JOINTS: There is mild facet hypertrophic change MUSCULATURE: Unremarkable INTERVERTEBRAL DISCS: There is mild diffuse loss of intervertebral disc height throughout the spine. AXIAL IMAGES: T12-L1: There is no osseous neural foraminal narrowing or central canal stenosis. L1-L2: There is no osseous neural foraminal narrowing or central canal stenosis. L2-L3: There is no osseous neural foraminal narrowing or central canal stenosis. L3-L4: There is no osseous neural foraminal narrowing or central canal stenosis. L4-L5: There is mild disc bulge. There is mild focal narrowing of the central canal. There is no significant osseous neural foraminal narrowing. L5-S1: There is a broad-based disc bulge with a left lateral recess disc protrusion measuring 0.7 cm in depth. There is mild left neural foraminal narrowing. There is no osseous central canal stenosis. SOFT TISSUES: The visualized soft tissues of the abdomen are unremarkable. OTHER: None IMPRESSION: 1. DIFFUSE NARROWING OF THE CENTRAL CANAL SECONDARY TO CONGENITALLY SHORT PEDICLES. 2. MILD DEGENERATIVE DISC DISEASE AND OSTEOARTHRITIS. 3. THERE IS A LEFT-SIDED DISC PROTRUSION AT L5-S1. 4. THERE IS MILD FOCAL NARROWING OF CENTRAL CANAL AT L4-L5
== END 2017-03-16 01:18 | disposition home or self-care (01) ==
LOC: ED 22:07
DX: M51.27 Other intervertebral disc displacement, lumbosacral region (principal); M51.36 Other intervertebral disc degeneration, lumbar region; I48.91 Unspecified atrial fibrillation; I20.9 Angina pectoris, unspecified; I10 Essential (primary) hypertension; E78.00 Pure hypercholesterolemia, unspecified; J45.909 Unspecified asthma, uncomplicated; F41.9 Anxiety disorder, unspecified; F32.9 Major depressive disorder, single episode, unspecified; Z88.5 Allergy status to narcotic agent; F17.210 Nicotine dependence, cigarettes, uncomplicated
CPT/HCPCS: 72131; 99282; A9270-GY

== ENCOUNTER 2019-10-21 23:22 | Emergency (ER) | payer OTHER ==
--- NOTE | 2019-10-22 | ED ---
Allergic Reaction/Systemic - HPI Summary HPI Summary: This pt is a 49 Y/O M presenting to [facility] with a CC of a potential allergic reaction that began at 1730 10/18/2019. He states that he has blisters, which are rated a 3/10 in severity, and swelling of the R arm with hives on his back. He states that last night he was having issues with swallowing while he was trying to go to sleep. He states that his R eye has become swollen. His L lip has been swelling since a couple hours ago. He states that he has recently started taking Lisinopril. He has a PMHx of HTN, anticoagulation therapy, AFIB, and asthma. He states no alleviating or aggravating factors. - History of Current Complaint Chief Complaint: EDAllergicReaction Time Seen by Provider: 10/21/19 23:51 Hx Obtained From: Patient Onset/Duration: Sudden Onset, Started days ago - 3, Still Present Timing: Constant, Lasting Days - 3 Severity Initially: Mild Severity Currently: Mild Pain Intensity: 3 Pain Scale Used: 0-10 Numeric Character: Swelling, Hives Aggravating Factor(s): Other - States lisinopril use Alleviating Factor(s): Nothing Associated Signs And Symptoms: Positive: Negative - headaches, recent fevers, Rash. Negative: Chest Pain, Difficulty Breathing, Nausea, Vomiting - Allergies/Home Medications Allergies/Adverse Reactions: Allergies Allergy/AdvReac Type Severity Reaction Status Date / Time MS Codeine [Codeine] Allergy Intermediate Rash Verified 10/21/19 23:27 PMH/Surg Hx/FS Hx/Imm Hx Previously Healthy: Yes Endocrine/Hematology History: Reports: Hx Anticoagulant Therapy Denies: Hx Diabetes Cardiovascular History: Reports: Hx Angina, Hx Hypercholesterolemia, Hx Hypertension, Other Cardiovascular Problems/Disorders - NEW ONSET A FIB Denies: Hx Congestive Heart Failure, Hx Coronary Artery Disease, Hx Myocardial Infarction, Hx Pacemaker/ICD, Hx Valvular Heart Disease Respiratory History: Reports: Hx Asthma Denies: Hx Chronic Obstructive Pulmonary Disease (COPD) History: Denies: Hx Renal Disease Musculoskeletal History: Reports: Hx Arthritis - LEFT SHOULDER, Hx Back Problems - pt reports lower back pain and spasms Sensory History: Denies: Hx Contacts or Glasses, Hx Hearing Aid Opthamlomology History: Denies: Hx Contacts or Glasses Neurological History: Reports: Hx Headaches Psychiatric History: Reports: Hx Anxiety, Hx Depression Denies: Hx Panic Disorder - Cancer History Hx Chemotherapy: No Hx Radiation Therapy: No - Surgical History Surgical History: Yes Surgery Procedure, Year, and Place: RIGHT FOOT X3. LEFT WRIST CARPAL TUNNEL. HEART ST[place] [facility] [place] - Immunization History Immunizations Up to Date: Yes Infectious Disease History: No Infectious Disease History: Denies: Traveled Outside the [place] in Last 30 Days - Family History Known Family History: Positive: Cardiac Disease - Both parents and grandparents with heart disease. - Social History Occupation: Employed Full-time Lives: With Family Alcohol Use: None Hx Substance Use: No Substance Use Type: Reports: None Hx Tobacco Use: Yes Smoking Status (MU): Heavy Every Day Tobacco Smoker Type: Cigarettes Amount Used/How Often: 2-3 packs per day Have You Smoked in the Last Year: Yes Review of Systems Negative: Fever Negative: Chest Pain Negative: Shortness Of Breath Negative: Vomiting, Nausea Skin: Other - hives to back, swelling of L lip, swelling of R eye, redness and swelling of R arm Positive: Rash Negative: Headache All Other Systems Reviewed And Are Negative: Yes Physical Exam - Summary Physical Exam Summary: Constitutional: Well-developed, Well-nourished, Alert. (-) Distressed Skin: Warm, Dry, scattered lesions on his back that are hive like HENT: Normocephalic; Angioedema of the L lower lip without any swelling of the tongue or throat Eyes: Conjunctiva normal Neck: Musculoskeletal ROM normal neck. (-) JVD, (-) Stridor, (-) Tracheal deviation Cardio: Rhythm regular, rate normal, Heart sounds normal; Intact distal pulses; The pedal pulses are 2+ and symmetric. Radial pulses are 2+ and symmetric. (-) Murmur Pulmonary/Chest wall: Effort normal. (-) Respiratory distress, (-) Wheezes, (-) Rales Abd: Soft, (-) tenderness, (-) Distension, (-) Guarding, (-) Rebound Musculoskeletal: (-) Edema Lymph: (-) Cervical adenopathy Neuro: Alert, Oriented x3 Psych: Mood and affect Normal Triage Information Reviewed: Yes Vital Signs On Initial Exam: Initial Vitals Temp Pulse Resp BP Pulse Ox 99.2 F 67 15 143/94 98 10/21/19 23:23 10/21/19 23:23 10/21/19 23:23 10/21/19 23:23 10/21/19 23:23 Vital Signs Reviewed: Yes Procedures - Sedation Patient Received Moderate/Deep Sedation with Procedure: No Diagnostics - Vital Signs Vital Signs Temp Pulse Resp BP Pulse Ox 10/21/19 23:23 99.2 F 67 15 143/94 98 - Laboratory Lab Statement: Any lab studies that have been ordered have been reviewed, and results considered in the medical decision making process. Allergic Reaction Course/Dx - Course Course Of Treatment: This pt is a 49 Y/O M presenting to [facility] with a CC of a potential allergic reaction that began at 1730 10/18/2019. He states that he has blisters, which are rated a 3/10 in severity, and swelling of the R arm with hives on his back. He states that last night he was having issues with swallowing while he was trying to go to sleep. He states that his R eye has become swollen. His L lip has been swelling since a couple hours ago. He states that he has been taking Lisinopril for the past couple of months. His PE found Angioedema of the L lower lip without any swelling of the tongue or throat, no respiratory distress, scattered lesions on his back that are hive like. He will be discharged home with a Dx of JUAN inhibitor induced angioedema. - Diagnoses Provider Diagnoses: JUAN inhibitor-aggravated angioedema Discharge ED - Sign-Out/Discharge Documenting (check all that apply): Patient Departure - discharge - Discharge Plan Condition: Good Disposition: HOME Prescriptions: diPHENhydraMINE PO* [Benadryl PO 50 MG CAP*] 50 mg PO Q6H PRN #20 cap PRN Reason: Hives Hydrochlorothiazide TAB* [Hydrodiuril TAB*] 50 mg PO DAILY #30 tab Patient Education Materials: Angioedema (ED) Referrals: Jose Ballesteros MD [Medical Doctor] - Additional Instructions: You have to stop taking the lisinopril, as that is that cause of the swelling you are experiencing. I have prescribed HCTZ as a substitute until you can get in to see Dr. Ballesteros or whoever is managing your high blood pressure. It may take a few days off the lisinopril for everything to resolve. Going forward you cannot take any medications in the JUAN inhibitor family, as any of the drugs in this category are likely to cause the same thing. - Billing Disposition and Condition Condition: GOOD Disposition: Home - Attestation Statements Document Initiated by Girish: Yes Documenting Scribe: Talon Lee Provider For Whom Girish is Documenting (Include Credential): Bud Alvarez MD Scribe Attestation: I, Talon Lee, scribed for Bud Alvarez MD on 10/22/19 at 1922. Scribe Documentation Reviewed: Yes Provider Attestation: The documentation as recorded by the Talon gutiérrez accurately reflects the service I personally performed and the decisions made by me, Bud Alvarez MD Status of Scribe Document: Viewed
[2019-10-22] MEDS ORDERED: diPHENhydraMINE PO* 50 MG PO ONE (00:08)
[2019-10-22 00:36] VITALS: BP 138/73
== END 2019-10-22 00:35 | disposition home or self-care (01) ==
LOC: ED 23:22
DX: T78.3XXA Angioneurotic edema, initial encounter (principal); T46.4X5A Adverse effect of angiotensin-converting-enzyme inhibitors, initial encounter; F17.210 Nicotine dependence, cigarettes, uncomplicated; R21 Rash and other nonspecific skin eruption; I48.91 Unspecified atrial fibrillation; E78.00 Pure hypercholesterolemia, unspecified; I10 Essential (primary) hypertension; R51 Headache; F41.9 Anxiety disorder, unspecified; F32.9 Major depressive disorder, single episode, unspecified; Z88.5 Allergy status to narcotic agent; Z79.01 Long term (current) use of anticoagulants; Z95.5 Presence of coronary angioplasty implant and graft
CPT/HCPCS: 99282; A9270-GY

== ENCOUNTER 2019-10-29 03:19 | Emergency (ER) | payer OTHER ==
--- NOTE | 2019-10-29 03:24 | ED ---
Throat Pain/Nasal Congestion - HPI Summary HPI Summary: Patient is a 49 y/o M [place] [facility] [place] with complaints of lip and facial swelling. Patient states that he awoke this evening and found that he was drooling. Patient subsequently noted swelling. He took PO benadryl at home and called EMS. EMS administered 50 mg benadryl. Swelling is still present. Patient notes that he was recently evaluated for angioedema and allergic reaction at [facility] [place] , patient had his lisinopril discontinued at the time. Patient notes that he was started on lipitor. Home medications and allergies are reviewed. - History of Current Complaint Hx Obtained From: Patient Onset/Duration: Still Present Severity: Moderate Associated Signs And Symptoms: Positive: Drooling Cough: None - Allergies/Home Medications Allergies/Adverse Reactions: Allergies Allergy/AdvReac Type Severity Reaction Status Date / Time lisinopril Allergy Intermediate Eyes Verified 10/29/19 03:32 Itchy/Swollen/Red/Watery MS Codeine [Codeine] Allergy Intermediate Rash Verified 10/29/19 03:32 Home Medications: Home Medications Aspirin EC TAB* [Ecotrin EC Low Dose 81 MG*] 81 mg PO DAILY 11/14/14 [History Confirmed 10/29/19] Atorvastatin* [Lipitor 80 MG*] 80 mg PO 1700 #30 tab 12/09/16 [Rx Confirmed ] Metoprolol Tartrate TAB* [Lopressor TAB*] 25 mg PO BID #60 tab 12/09/16 [Rx Confirmed 10/29/19] Nitroglycerin TAB 0.4 MG* 0.4 mg SL Q5M PRN #10 tab 12/09/16 [Rx Confirmed 10/29] Prasugrel (NF) [Effient (NF)] 10 mg PO DAILY tab 12/09/16 [Rx Confirmed ] diPHENhydraMINE PO* [Benadryl PO 50 MG CAP*] 50 mg PO Q6H PRN #20 cap 10/21/19 [ Rx Confirmed 10/29/19] Hydrochlorothiazide TAB* [Hydrodiuril TAB*] 50 mg PO DAILY #30 tab 10/22/19 [Rx Confirmed 10/29/19] Cetirizine* [ZyrTEC 10 MG TAB*] 10 mg PO DAILY #10 tab 10/29/19 [Rx] predniSONE 20 mg TAB [Deltasone 20 MG TAB*] 40 mg PO DAILY 5 Days #10 tab [Rx] PMH/Surg Hx/FS Hx/Imm Hx Endocrine/Hematology History: Reports: Hx Anticoagulant Therapy Denies: Hx Diabetes Cardiovascular History: Reports: Hx Angina, Hx Hypercholesterolemia, Hx Hypertension, Other Cardiovascular Problems/Disorders - NEW ONSET A FIB Denies: Hx Congestive Heart Failure, Hx Coronary Artery Disease, Hx Myocardial Infarction, Hx Pacemaker/ICD, Hx Valvular Heart Disease Respiratory History: Reports: Hx Asthma Denies: Hx Chronic Obstructive Pulmonary Disease (COPD) History: Denies: Hx Renal Disease Musculoskeletal History: Reports: Hx Arthritis - LEFT SHOULDER, Hx Back Problems - pt reports lower back pain and spasms Sensory History: Denies: Hx Contacts or Glasses, Hx Hearing Aid Opthamlomology History: Denies: Hx Contacts or Glasses Neurological History: Reports: Hx Headaches Psychiatric History: Reports: Hx Anxiety, Hx Depression Denies: Hx Panic Disorder - Cancer History Hx Chemotherapy: No Hx Radiation Therapy: No - Surgical History Surgery Procedure, Year, and Place: RIGHT FOOT X3. LEFT WRIST CARPAL TUNNEL. HEART STENT [facility] [place] - Family History Known Family History: Positive: Cardiac Disease - Both parents and grandparents with heart disease. - Social History Alcohol Use: None Hx Substance Use: No Substance Use Type: Reports: None Hx Tobacco Use: Yes Smoking Status (MU): Heavy Every Day Tobacco Smoker Type: Cigarettes Amount Used/How Often: 2-3 packs per day Have You Smoked in the Last Year: Yes Review of Systems Positive: Other - drooling Positive: Edema All Other Systems Reviewed And Are Negative: Yes Physical Exam - Summary Physical Exam Summary: Appearance: Well-appearing, Well-nourished, lying in bed comfortably Skin: Warm, dry, no obvious rash Eyes: sclera anicteric, no conjunctival pallor HENT: Obvious angioedema of upper and lower lips, none inside mouth and none involving the tongue or pharynx. Voice is normal. Neck: Supple, nontender Respiratory: Clear to auscultation, no signs of respiratory distress Cardiovascular: Normal S1, S2. No murmurs. Normal distal pulses in tibial and radial bilaterally. Abdomen: Soft, nontender, normal active bowel sounds present Musculoskeletal: Normal, Strength/ROM Intact Neurological: A&Ox3, awake and alert, mentation is normal, speech is fluent and appropriate Psychiatric: affect is normal, does not appear anxious or depressed Triage Information Reviewed: Yes Vital Signs On Initial Exam: Initial Vital Signs Temp 98.1 F 10/29/19 03:22 Pulse 82 10/29/19 03:22 Resp 20 10/29/19 03:22 BP 132/82 10/29/19 03:22 Pulse Ox 98 10/29/19 03:22 Vital Signs Reviewed: Yes Procedures - Sedation Patient Received Moderate/Deep Sedation with Procedure: No EENT Course/Dx - Course Course Of Treatment: Patient is a 49 y/o M presenting to [facility] [place] with complaints of upper lip and right facial swelling. Patient states that he awoke this evening and found that he was drooling. Patient subsequently noted facial swelling. He took PO benadryl at home and called EMS. EMS administered 50 mg benadryl. Swelling is still present. Patient notes that he was recently evaluated for angioedema and allergic reaction at [facility] [place], patient had his lisinopril discontinued at the time. Patient notes that he was started on lipitor. On physical exam, obvious angioedema of upper and lower lips, none inside mouth and none involving the tongue or pharynx. Voice is normal. Patient was given prednisone 20 mg PO and a duoneb treatment. Sx improved, patient remained stable throughout ED observation. He was discharged to home with prescriptions for prednisone and cetirizine. Patient to follow up with an general accounting manager. - Diagnoses Provider Diagnoses: Angioedema, Allergic reaction Discharge ED - Sign-Out/Discharge Documenting (check all that apply): Patient Departure - DISCHARGE - Discharge Plan Condition: Good Disposition: HOME Prescriptions: Cetirizine* [ZyrTEC 10 MG TAB*] 10 mg PO DAILY #10 tab predniSONE 20 mg TAB [Deltasone 20 MG TAB*] 40 mg PO DAILY 5 Days #10 tab Patient Education Materials: Angioedema (ED), General Allergic Reaction (ED) Referrals: Angel Frederick MD [Medical Doctor] - Additional Instructions: I think you should see an family development specialist like Dr. Frederick. Please contact his office. In the meantime I have prescribed medication to help with the reaction. The prednisone will be for 5 days, the cetirizine can be taken longer if needed ; it is an antihistamine like benadryl so you don't need benadryl if you take this. - Attestation Statements Document Initiated by Scribe: Yes Documenting Scribe: HUSAM ISRAEL Provider For Whom Girish is Documenting (Include Credential): BRYANT CONDE MD Scribe Attestation: I, HUSAM ISRAEL, scribed for BRYANT CONDE MD on 10/29/19 at 0641. Status of Scribe Document: Ready
[2019-10-29] MEDS ORDERED: Albuterol/Ipratropium NEB.SOL* Albuterol 2.5 MG/Ipratropium 0.5 MG 3 ML INH ONE (03:34)
[2019-10-29 06:24] VITALS: BP 118/64
== END 2019-10-29 06:39 | disposition home or self-care (01) ==
LOC: ED 03:19
DX: T78.3XXA Angioneurotic edema, initial encounter (principal); T78.40XA Allergy, unspecified, initial encounter; X58.XXXA Exposure to other specified factors, initial encounter; E78.00 Pure hypercholesterolemia, unspecified; I10 Essential (primary) hypertension; Z79.82 Long term (current) use of aspirin; Z79.899 Other long term (current) drug therapy; Z88.5 Allergy status to narcotic agent; Z88.8 Allergy status to other drugs, medicaments and biological substances; F17.210 Nicotine dependence, cigarettes, uncomplicated
CPT/HCPCS: 99283; A9270-GY; J7512

== ENCOUNTER 2019-12-28 14:48 | Emergency (ER) | payer OTHER ==
[2019-12-28] MEDS ORDERED: Albuterol/Ipratropium NEB.SOL* (2.5/0.5 MG) 3 ML NEB.SOLN INH ONE (14:58)
--- NOTE | 2019-12-28 15:08 | ED ---
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 Patient states that he ate lunch after which he felt a burning sensation in his chest as if he was having heartburn. Later, patient went outside to smoke a cigarette and drank 2 beers after which the chest pain changed from a burning sensation to a pressure sensation. He felt lightheadedness after smoking and drinking alcohol. Currently, patient notes palpitations. He rates the chest pain as a 3/10 in severity. Patient denies fever, shortness of breath, nausea, or vomiting. No aggravating or alleviating factors are reported. He denies any recent travel or positive contact with anyone that is sick. Marijuana use is admitted. Patient takes 81 mg aspirin daily, last on 12/28/19, Norvasc 0.2 mg, and metoprolol 25 mg BID. PSHx is significant for stent placement. - History of Current Complaint Chief Complaint: EDChestPainROMI Time Seen by Provider: 12/28/19 14:58 Hx Obtained From: Patient Onset/Duration: Still Present Timing: Constant Initial Severity: Mild Current Severity: Mild Pain Intensity: 3 Pain Scale Used: 0-10 Numeric Character: Burning, Pressure/Squeezing Aggravating Factor(s): Nothing Alleviating Factor(s): Nothing Associated Signs and Symptoms: Positive: Chest Pain, Lightheadedness, Palpitations. Negative: Shortness of Breath, Fever, Nausea, Vomiting - Additional Pertinent History Primary Care Physician: [id number] - Allergy/Home Medications Allergies/Adverse Reactions: Allergies Allergy/AdvReac Type Severity Reaction Status Date / Time lisinopril Allergy Intermediate Eyes Verified 12/28/19 15:03 Itchy/Swollen/Red/Watery codeine Allergy Rash Verified 12/28/19 15:03 Home Medications: Home Medications Aspirin EC TAB* [Ecotrin EC Low Dose 81 MG*] 81 mg PO DAILY 11/14/14 [History Confirmed 12/28/19] Nitroglycerin TAB 0.4 MG* 0.4 mg SL Q5M PRN #10 tab 12/09/16 [Rx Confirmed 12/27] Amlodipine 2.5 mg TAB (NF) 2.5 mg PO DAILY 12/28/19 [History Confirmed 12/28/19] Metoprolol Tartrate TAB* [Lopressor TAB*] 12.5 mg PO BID 12/28/19 [History Confirmed 12/28/19] PMH/Surg Hx/FS Hx/Imm Hx Previously Healthy: Yes Endocrine/Hematology History: Reports: Hx Anticoagulant Therapy Denies: Hx Diabetes Cardiovascular History: Reports: Hx Angina, Hx Hypercholesterolemia, Hx Hypertension, Other Cardiovascular Problems/Disorders - NEW ONSET A FIB Denies: Hx Congestive Heart Failure, Hx Coronary Artery Disease, Hx Myocardial Infarction, Hx Pacemaker/ICD, Hx Valvular Heart Disease Respiratory History: Reports: Hx Asthma Denies: Hx Chronic Obstructive Pulmonary Disease (COPD) History: Denies: Hx Renal Disease Musculoskeletal History: Reports: Hx Arthritis - LEFT SHOULDER, Hx Back Problems - pt reports lower back pain and spasms Sensory History: Denies: Hx Contacts or Glasses, Hx Hearing Aid Opthamlomology History: Denies: Hx Contacts or Glasses Neurological History: Reports: Hx Headaches Psychiatric History: Reports: Hx Anxiety, Hx Depression Denies: Hx Panic Disorder - Cancer History Hx Chemotherapy: No Hx Radiation Therapy: No - Surgical History Surgical History: Yes Surgery Procedure, Year, and Place: RIGHT FOOT X3. LEFT WRIST CARPAL TUNNEL. HEART STENT [facility] [place] 12/2016 Infectious Disease History: No Infectious Disease History: Denies: History Other Infectious Disease, Traveled Outside the [place] in Last 30 Days - Family History Known Family History: Positive: Cardiac Disease - Both parents and grandparents with heart disease. - Social History Occupation: Unemployed Lives: With Family Alcohol Use: Occasionally Alcohol Amount: beer drank 10/28 Hx Substance Use: Yes Substance Use Type: Reports: Marijuana Hx Tobacco Use: Yes Smoking Status (MU): Heavy Every Day Tobacco Smoker Type: Cigarettes Amount Used/How Often: 2-3 packs per day Have You Smoked in the Last Year: Yes Review of Systems Negative: Fever Positive: Palpitations, Chest Pain Negative: Shortness Of Breath Negative: Vomiting, Nausea Neurological/Mental Status: Other - Positive lightheadedness All Other Systems Reviewed And Are Negative: Yes Physical Exam - Summary Physical Exam Summary: VITAL SIGNS: Reviewed. GENERAL: Patient is a well-developed and nourished MALE who is lying comfortable in the stretcher. Patient is not in any acute respiratory distress. HEAD AND FACE: No signs of trauma. No ecchymosis, hematomas or skull depressions. No sinus tenderness. EYES: PERRLA, EOMI x 2, No injected conjunctiva, no nystagmus. EARS: Hearing grossly intact. Ear canals and tympanic membranes are within normal limits. MOUTH: Oropharynx within normal limits. NECK: Supple, trachea is midline, no adenopathy, no JVD, no carotid bruit, no c- spine tenderness, neck with full ROM. CHEST: Symmetric, no tenderness at palpation. LUNGS: Clear to auscultation bilaterally. No wheezing or crackles. CVS: Regular rate and rhythm, S1 and S2 present, no murmurs or gallops appreciated. ABDOMEN: Soft, non-tender. No signs of distention. No rebound, no guarding, and no masses palpated. Bowel sounds are normal. EXTREMITIES: FROM in all major joints, no edema, no cyanosis or clubbing. NEURO: Alert and oriented x 3. No acute neurological deficits. Speech is normal and follows commands. SKIN: Dry and warm. Triage Information Reviewed: Yes Vital Signs On Initial Exam: Initial Vitals Temp Pulse Resp BP Pulse Ox 98.7 F 100 18 183/110 99 12/28/19 14:59 12/28/19 14:59 12/28/19 14:59 12/28/19 14:59 12/28/19 14:59 Vital Signs Reviewed: Yes Procedures - Sedation Patient Received Moderate/Deep Sedation with Procedure: No Diagnostics - Vital Signs Vital Signs Temp Pulse Resp BP Pulse Ox 12/28/19 14:59 98.7 F 100 18 183/110 99 - Laboratory Result Diagrams: 12/28/19 15:16 12/28/19 15:16 Lab Statement: Any lab studies that have been ordered have been reviewed, and results considered in the medical decision making process. - Radiology Chest X-ray Radiology Interpretation Completed By: Radiologist Summary of Radiographic Findings: Chest X-ray IMPRESSION: No acute cardiopulmonary process by radiograph. Reviewed by Dr. Wellington. - EKG 14:53 Cardiac Rate: Tachycardia - 110 BPM EKG Rhythm: Sinus Tachycardia ST Segment: Normal Ectopy: None Summary of EKG Findings: EKG at 14:53 shows sinus tachycardia with 110 BPM, no ST elevations, normal axis. Reviewed and interpreted by Dr. Wellington. 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 Patient states that he ate lunch after which he felt a burning sensation in his chest as if he was having heartburn. Later, patient went outside to smoke a cigarette and drank 2 beers after which the chest pain changed from a burning sensation to a pressure sensation. He felt lightheadedness after smoking and drinking alcohol. Currently , patient notes palpitations. He rates the chest pain as a 3/10 in severity. Patient denies fever, shortness of breath, nausea, or vomiting. No aggravating or alleviating factors are reported. He denies any recent travel or positive contact with anyone that is sick. Marijuana use is admitted. Patient takes 81 mg aspirin daily, last on 12/28/19, Norvasc 0.2 mg, and metoprolol 25 mg BID. PSHx is significant for stent placement. In the ED course the patient was placed in a ekg monitor tech, IV access was obtained, IV fluids started. Past medical records reviewed. Blood test w/o a significant abnormality except for glucose 109, total CPK 237, urinalysis is negative for UTI, serum alcohol is 41. Patient is resting comfortably in the ED. First troponin is 0.00. Second triponin pending. Patient will be signed out to Dr. Molina at shift change. - Chest Pain Differential Diagnosis/HQI/PQRI: Acute TX, ACS, Angina, CHF, Chest Wall, GI Disease, Lower Respiratory Infection, Pulmonary Edema - Diagnoses Provider Diagnoses: Chest pain - Critical Care Time Critical Care Statement: Critical care time is provided exclusive of any time spent performing procedures. Discharge ED - Sign-Out/Discharge Documenting (check all that apply): Sign-Out Patient Signing out patient TO: Spike Molina - Patient is a sign-out at 19:[address] Caden Wellington to Dr. Spike Molina at shift change, pending repeat troponin and disposition. - Discharge Plan Condition: Stable Disposition: HOME Patient Education Materials: Chest Pain (ED) Referrals: Care [facility] [Outside] Additional Instructions: Please follow up with your primary care physician in 1-3 days. PLEASE RETURN TO EMERGENCY DEPARTMENT FOR WORSENING CHEST PAIN, TROUBLE BREATHING, OR ANY OTHER CONCERNING SYMPTOMS. - Billing Disposition and Condition Condition: STABLE - Attestation Statements Document Initiated by Scribe: Yes Documenting Scribe: Malorie Amquy Provider For Whom Scribe is Documenting (Include Credential): Caden Wellington MD Scribe Attestation: IMalorie, scribed for Caden Wellington MD on 12/29/19 at 1248. Scribe Documentation Reviewed: Yes Provider Attestation: The documentation as recorded by the Malorie gutiérrez accurately reflects the service I personally performed and the decisions made by me, Caden Wellington MD Status of Scribe Document: Viewed
[2019-12-28 15:32] LABS: ABS Basophils 0.1 10^3/ul (0-0.2); ABS Eosinophils 0.2 10^3/ul (0-0.6); ABS Lymphocytes 1.5 10^3/ul (1.0-4.8); ABS Monocytes 0.6 10^3/ul (0-0.8); ABS Neutrophils 6.6 10^3/ul (1.5-7.7); Eosinophil % 2.1 %; Hematocrit 50 % (42-52); Hemoglobin 17.7 g/dL (14.0-18.0); Mean Corpuscular HGB Conc 36 g/dL (31-36); Mean Corpuscular Hemoglobin 32 pg (27-31); Mean Corpuscular Volume 91 fL (80-94); Mean Platelet Volume 9.3 fL (7.4-10.4); Platelet Count 157 10^3/uL (150-450); Red Cell Distribution Width 15 % (10-15); White Blood Count 9.1 10^3/uL (3.5-10.8)
[2019-12-28 15:39] LABS: Activated Partial Thrombo Time 33.2 seconds (26.0-38.0); INR 0.95 (0.82-1.09)
[2019-12-28 15:52] LABS: CKMB ng/mL 4.1 ng/mL (0.6-6.3)
[2019-12-28 15:54] LABS: Albumin 4.4 g/dL (3.2-5.2); Albumin/Globulin Ratio 1.6 (1-3); BUN/Creatinine Ratio 9.2 (8-20); Calcium 9.6 mg/dL (8.6-10.3); EGFR Non-African American 109.9 (>60); Globulin 2.7 g/dL (2-4); Potassium 3.5 mmol/L (3.5-5.0); Total Bilirubin 0.7 mg/dL (0.2-1.0); Total Protein 7.1 g/dL (6.4-8.9)
[2019-12-28 16:16] LABS: Urine Appearance Clear; Urine Bilirubin Negative (Negative); Urine Blood Negative (Negative); Urine Color Straw; Urine Glucose Negative (Negative); Urine Ketones Negative (Negative); Urine Nitrite Negative (Negative); Urine Protein Negative (Negative); Urine Specific Gravity 1.004 (1.010-1.030); Urine Urobilinogen Negative (Negative)
[2019-12-28 16:29] LABS: TSH (Thyroid Stimulating Horm) 1.22 mcIU/mL (0.34-5.60)
--- NOTE | 2019-12-28 18:30 | ED ---
Progress - Progress Note Progress Note: This patient is received as a sign-out from Dr. Wellington at shift change pending second troponin and disposition. Re-Evaluation - Re-Evaluation First Eval Re-Evaluation Time: 18:52 Comment: Reviewed results with patient and discussed discharge plan. Course/Dx - Course Course Of Treatment: Patient is here with chest pain. Patient was seen by Dr. Wellington where a workup was performed. Patient was signed out to myself pending a second troponin. Patient's second troponin came back normal and patient was discharged with outpatient follow-up. - Diagnoses Provider Diagnoses: Chest pain - Critical Care Time Critical Care Statement: Critical care time is provided exclusive of any time spent performing procedures. Discharge ED - Sign-Out/Discharge Documenting (check all that apply): Patient Departure - Discharge home, Receiving Sign-Out Receiving patient FROM: Caden Wellington - Discharge Plan Condition: Stable Disposition: HOME Patient Education Materials: Chest Pain (ED) Referrals: Care [facility] [Outside] Additional Instructions: Please follow up with your primary care physician in 1-3 days. PLEASE RETURN TO EMERGENCY DEPARTMENT FOR WORSENING CHEST PAIN, TROUBLE BREATHING, OR ANY OTHER CONCERNING SYMPTOMS. - Billing Disposition and Condition Condition: STABLE Disposition: Home - Attestation Statements Document Initiated by Scribe: Yes Documenting Scribe: Lillie Kessler Provider For Whom Girish is Documenting (Include Credential): Spike Molina MD Scribe Attestation: Lillie Pop, scribed for Spike Molina MD on 12/31/19 at 0930. Scribe Documentation Reviewed: Yes Provider Attestation: The documentation as recorded by the Lillie gutiérrez accurately reflects the service I personally performed and the decisions made by , Spike Molina MD Status of Scribe Document: Viewed
[2019-12-28 18:55] VITALS: BP 182/96
== END 2019-12-28 18:54 | disposition home or self-care (01) ==
LOC: ED 14:48
DX: R07.9 Chest pain, unspecified (principal); R42 Dizziness and giddiness; R00.1 Bradycardia, unspecified; I10 Essential (primary) hypertension; E78.00 Pure hypercholesterolemia, unspecified; F41.9 Anxiety disorder, unspecified; F32.9 Major depressive disorder, single episode, unspecified; F17.210 Nicotine dependence, cigarettes, uncomplicated; Z79.01 Long term (current) use of anticoagulants; Z88.8 Allergy status to other drugs, medicaments and biological substances; Z79.82 Long term (current) use of aspirin; Z79.899 Other long term (current) drug therapy
CPT/HCPCS: 36415; 71045; 80053; 80320; 81003; 82550; 82553; 83605; 83735; 83880; 84443; 84484; 85025; 85610; 85730; 93005; 99283; G0480

== ENCOUNTER 2020-01-06 11:15 | Observation (INO) ==
[2020-01-06 12:03] LABS: ALT 24 U/L (7-52); Albumin 3.6 g/dL (3.2-5.2); Albumin/Globulin Ratio 1.6 (1-3); Alkaline Phosphatase 48 U/L (34-104); BUN/Creatinine Ratio 13.4 (8-20); Blood Urea Nitrogen 9 mg/dL (6-24); CO2 Carbon Dioxide 23 mmol/L (22-32); Calcium 8.1 mg/dL (8.6-10.3); EGFR African American 153.8 (>60); EGFR Non-African American 127.1 (>60); Globulin 2.3 g/dL (2-4); Glucose 86 mg/dL (70-100); Sodium 141 mmol/L (135-145); Total Protein 5.9 g/dL (6.4-8.9)
[2020-01-06 12:11] LABS: Chloride 114 mmol/L (101-111)
[2020-01-06 13:11] LABS: Anion Gap 4 mmol/L (2-11)
[2020-01-06 13:22] LABS: ABS Basophils 0.1 10^3/ul (0-0.2); ABS Eosinophils 0.2 10^3/ul (0-0.6); ABS Monocytes 0.6 10^3/ul (0-0.8); Hematocrit 45 % (42-52); Mean Corpuscular HGB Conc 35 g/dL (31-36); Mean Corpuscular Hemoglobin 32 pg (27-31); Mean Corpuscular Volume 90 fL (80-94); Mean Platelet Volume 10.3 fL (7.4-10.4); Platelet Count 174 10^3/uL (150-450); Red Blood Count 5.03 10^6 /uL (4.18-5.48); Red Cell Distribution Width 14 % (10-15); White Blood Count 8.9 10^3/uL (3.5-10.8)
[2020-01-06 13:23] LABS: Eosinophil % 1.8 %; Lymphocyte % 21.9 %; Nucleated Red Blood Cells % 0.1
[2020-01-06 13:31] LABS: INR 1.02 (0.82-1.09)
[2020-01-06] MEDS ORDERED: Nitro 2% OINT (Nitroglycerin) 1 INCH/PAK TOPICAL ONE ×2 (13:44→15:17)
[2020-01-06] MEDS ORDERED: Nicotine GUM 4MG FRUIT FLAVOR PO PRN (13:47)
[2020-01-06] MEDS ORDERED: Ondansetron 4 mg VIAL 2 MG/ML 2 ml VIAL IV PRN (13:56)
[2020-01-06] MEDS ORDERED: Enoxaparin 40 MG/0.4 ML SYR(*) SUBCUT SCH (14:00)
[2020-01-06] MEDS: Nicotine PATCH 21 MG/24 HR PATCH TRANSDERM SCH (15:22)
[2020-01-07 07:46] LABS: HDL Cholesterol 37.2 mg/dL
[2020-01-07 07:48] LABS: Potassium Redraw 3.6 mmol/L (3.5-5.0)
[2020-01-07] MEDS ORDERED: Aspirin EC 81 mg TAB.EC (enteric coated) PO SCH (09:00)
[2020-01-07] MEDS: Nicotine PATCH 21 MG/24 HR PATCH TRANSDERM SCH (10:48)
[2020-01-07 11:09] VITALS: BP 151/80
[2020-01-07] MEDS ORDERED: Melatonin (NF) ** ENTER STRENGTH IN LABEL DIRECTIONS PO SCH (21:00)
== END 2020-01-07 15:15 | disposition home or self-care (01) ==
LOC: MEDTELE 11:15 → ED 11:15 → MEDTELE 15:10
PROVIDERS: ADMIT Internal Medicine; ATTEND Internal Medicine

== ENCOUNTER 2020-04-11 11:52 | Inpatient (IN) ==
[2020-04-11] MEDS ORDERED: NS 0.9% 1000 ml BAG 1,000 ML IV ONE ×2 (13:52→14:50)
[2020-04-11 14:26] LABS: Hematocrit 49 % (42-52); Hemoglobin 17.3 g/dL (14.0-18.0); Mean Corpuscular HGB Conc 35 g/dL (31-36); Mean Corpuscular Hemoglobin 32 pg (27-31); Mean Corpuscular Volume 90 fL (80-94); Mean Platelet Volume 10.1 fL (7.4-10.4); Platelet Count 108 10^3/uL (150-450); Red Blood Count 5.42 10^6 /uL (4.18-5.48); Red Cell Distribution Width 14 % (10-15); White Blood Count 3.7 10^3/uL (3.5-10.8)
[2020-04-11 14:41] LABS: Troponin I 0.01 ng/mL (<0.03)
[2020-04-11 14:42] LABS: INR 1.1 (0.82-1.09)
[2020-04-11 14:44] LABS: Albumin 3.8 g/dL (3.2-5.2); Albumin/Globulin Ratio 1.4 (1-3); Alkaline Phosphatase 180 U/L (34-104); Anion Gap 6 mmol/L (2-11); BUN/Creatinine Ratio 8.2 (8-20); Blood Urea Nitrogen 7 mg/dL (6-24); C Reactive Protein 14.25 mg/L (<8.01); CO2 Carbon Dioxide 26 mmol/L (22-32); Chloride 103 mmol/L (101-111); EGFR African American 116.4 (>60); EGFR Non-African American 96.2 (>60); Globulin 2.8 g/dL (2-4); Glucose 100 mg/dL (70-100); Lipase 98 U/L (11.0-82.0); Potassium 4.1 mmol/L (3.5-5.0); Sodium 135 mmol/L (135-145); Total Protein 6.6 g/dL (6.4-8.9)
[2020-04-11 14:58] LABS: ABS Eosinophils 0.2 10^3/ul (0-0.6); ABS Lymphocytes 0.8 10^3/ul (1.0-4.8); ABS Monocytes 0.5 10^3/ul (0-0.8); ABS Neutrophils 2.2 10^3/ul (1.5-7.7); Eosinophil % 6.3 %; Lymphocyte % 22.3 %; Nucleated Red Blood Cells % 0.3
[2020-04-11 15:47] LABS: ALT 4039 U/L (7-52); AST 3333 U/L (13-39)
[2020-04-11 17:05] LABS: Acetaminophen < 15 mcg/mL
[2020-04-11 17:29] LABS: Urine Appearance Clear; Urine Bilirubin Negative (Negative); Urine Blood Negative (Negative); Urine Color Amber; Urine Glucose Negative (Negative); Urine Ketones Negative (Negative); Urine Nitrite Negative (Negative); Urine Protein Negative (Negative); Urine Specific Gravity 1.009 (1.010-1.030); Urine Urobilinogen Negative (Negative)
[2020-04-11 17:34] LABS: Urine Benzodiazepine Screen None Detected (None Detect); Urine Cannabinoids Screen Presumptive Positive (None Detect); Urine Opiates Screen None Detected (None Detect)
[2020-04-11 17:47] LABS: Hepatitis B Surface Antigen Nonreactive (Nonreactive)
[2020-04-11 17:52] LABS: Hepatitis A Ab IgM Reactive (Negative)
[2020-04-11 17:53] LABS: Hepatitis B Core IgM Nonreactive (Nonreactive)
[2020-04-11 18:04] LABS: Hepatitis C Antibody Negative (Negative)
[2020-04-11] MEDS: Nicotine Lozenge mini 2 MG LOZNG.MINI MT PRN (21:39)
[2020-04-11 21:51] LABS: INR 1.19 (0.82-1.09)
[2020-04-11 21:56] LABS: Albumin 3.3 g/dL (3.2-5.2); Albumin/Globulin Ratio 1.4 (1-3); BUN/Creatinine Ratio 9.7 (8-20); Calcium 8.3 mg/dL (8.6-10.3); EGFR Non-African American 116.5 (>60); Globulin 2.4 g/dL (2-4); Phosphorus 1.9 mg/dL (2.5-5.0); Potassium 3.7 mmol/L (3.5-5.0); Total Bilirubin 2.6 mg/dL (0.2-1.0); Total Protein 5.7 g/dL (6.4-8.9)
[2020-04-11] MEDS ORDERED: Diclofenac 1% GEL (NF) 100 GM TUBE TOPICAL PRN (22:51)
[2020-04-12 06:46] LABS: Hematocrit 45 % (42-52); Hemoglobin 16.1 g/dL (14.0-18.0); Mean Corpuscular HGB Conc 36 g/dL (31-36); Mean Corpuscular Hemoglobin 32 pg (27-31); Mean Corpuscular Volume 90 fL (80-94); Mean Platelet Volume 10.4 fL (7.4-10.4); Platelet Count 104 10^3/uL (150-450); Red Blood Count 4.97 10^6 /uL (4.18-5.48); Red Cell Distribution Width 13 % (10-15); White Blood Count 4.4 10^3/uL (3.5-10.8)
[2020-04-12 06:49] LABS: Albumin 3.4 g/dL (3.2-5.2); Albumin/Globulin Ratio 1.4 (1-3); BUN/Creatinine Ratio 10.6 (8-20); Calcium 8.5 mg/dL (8.6-10.3); EGFR African American 155.9 (>60); EGFR Non-African American 128.8 (>60); Globulin 2.5 g/dL (2-4); Potassium 3.9 mmol/L (3.5-5.0); Total Bilirubin 3.5 mg/dL (0.2-1.0); Total Protein 5.9 g/dL (6.4-8.9)
[2020-04-12] MEDS: Aspirin EC 81 mg TAB.EC (enteric coated) PO SCH (10:36)
[2020-04-12 10:38] LABS: INR 1.17 (0.82-1.09)
[2020-04-12] MEDS: Nicotine Lozenge mini 2 MG LOZNG.MINI MT PRN ×2 (10:43→21:17)
[2020-04-12] MEDS: Ondansetron 4 mg VIAL 2 MG/ML 2 ml VIAL IV PRN ×3 (10:43→23:55)
[2020-04-12 10:58] LABS: ABS Basophils 0.1 10^3/ul (0-0.2); ABS Eosinophils 0.2 10^3/ul (0-0.6); ABS Lymphocytes 1.1 10^3/ul (1.0-4.8); ABS Monocytes 0.8 10^3/ul (0-0.8); ABS Neutrophils 2.3 10^3/ul (1.5-7.7); Eosinophil % 5.1 %; Lymphocyte % 23.8 %; Nucleated Red Blood Cells % 0.1
[2020-04-12 17:38] LABS: INR 1.22 (0.82-1.09)
[2020-04-12 18:13] LABS: Albumin 3.4 g/dL (3.2-5.2); Albumin/Globulin Ratio 1.3 (1-3); BUN/Creatinine Ratio 15.9 (8-20); Calcium 8.6 mg/dL (8.6-10.3); EGFR African American 121.3 (>60); EGFR Non-African American 100.3 (>60); Globulin 2.6 g/dL (2-4); Potassium 3.7 mmol/L (3.5-5.0); Total Bilirubin 4.2 mg/dL (0.2-1.0)
[2020-04-13 06:12] LABS: Albumin 3.2 g/dL (3.2-5.2); Albumin/Globulin Ratio 1.1 (1-3); Alkaline Phosphatase 212 U/L (34-104); Anion Gap 3 mmol/L (2-11); BUN/Creatinine Ratio 15.2 (8-20); Blood Urea Nitrogen 12 mg/dL (6-24); C Reactive Protein 11.79 mg/L (<8.01); CO2 Carbon Dioxide 26 mmol/L (22-32); Calcium 8.5 mg/dL (8.6-10.3); Chloride 103 mmol/L (101-111); EGFR African American 126.7 (>60); EGFR Non-African American 104.7 (>60); Globulin 2.9 g/dL (2-4); Glucose 91 mg/dL (70-100); Potassium 4.2 mmol/L (3.5-5.0); Sodium 132 mmol/L (135-145); Total Protein 6.1 g/dL (6.4-8.9)
[2020-04-13 06:18] LABS: ABS Basophils 0.1 10^3/ul (0-0.2); ABS Eosinophils 0.3 10^3/ul (0-0.6); ABS Lymphocytes 1.2 10^3/ul (1.0-4.8); ABS Monocytes 0.7 10^3/ul (0-0.8); ABS Neutrophils 1.8 10^3/ul (1.5-7.7); Eosinophil % 6.6 %; Hematocrit 45 % (42-52); Hemoglobin 15.9 g/dL (14.0-18.0); Lymphocyte % 28.5 %; Mean Corpuscular HGB Conc 36 g/dL (31-36); Mean Corpuscular Hemoglobin 32 pg (27-31); Mean Corpuscular Volume 91 fL (80-94); Mean Platelet Volume 10.2 fL (7.4-10.4); Nucleated Red Blood Cells % 0.1; Platelet Count 99 10^3/uL (150-450); Red Blood Count 4.93 10^6 /uL (4.18-5.48); Red Cell Distribution Width 14 % (10-15); White Blood Count 4.1 10^3/uL (3.5-10.8)
[2020-04-13 06:30] LABS: ALT > 4500 U/L (7-52); AST 3450 U/L (13-39)
[2020-04-13] MEDS: Nicotine Lozenge mini 2 MG LOZNG.MINI MT PRN ×2 (08:45→13:46)
[2020-04-13] MEDS: Aspirin EC 81 mg TAB.EC (enteric coated) PO SCH (08:46)
[2020-04-13 12:59] LABS: INR 1.19 (0.82-1.09)
[2020-04-14 00:33] LABS: INR 1.28 (0.82-1.09)
[2020-04-14 08:38] LABS: Hematocrit 45 % (42-52); Hemoglobin 15.5 g/dL (14.0-18.0); Mean Corpuscular HGB Conc 35 g/dL (31-36); Mean Corpuscular Hemoglobin 32 pg (27-31); Mean Corpuscular Volume 92 fL (80-94); Platelet Count 109 10^3/uL (150-450); Red Cell Distribution Width 14 % (10-15); White Blood Count 4.2 10^3/uL (3.5-10.8)
[2020-04-14 08:52] LABS: ABS Eosinophils 0.3 10^3/ul (0-0.6); ABS Lymphocytes 0.9 10^3/ul (1.0-4.8); ABS Monocytes 0.6 10^3/ul (0-0.8); ABS Neutrophils 2.4 10^3/ul (1.5-7.7); Eosinophil % 7.4 %; Lymphocyte % 21.7 %; Nucleated Red Blood Cells % 0.1
[2020-04-14 08:54] LABS: Albumin 3.1 g/dL (3.2-5.2); Albumin/Globulin Ratio 1.1 (1-3); BUN/Creatinine Ratio 12.2 (8-20); Calcium 8.2 mg/dL (8.6-10.3); EGFR African American 136.6 (>60); EGFR Non-African American 112.9 (>60); Globulin 2.9 g/dL (2-4); Potassium 3.9 mmol/L (3.5-5.0)
[2020-04-14] MEDS: Aspirin EC 81 mg TAB.EC (enteric coated) PO SCH (09:08)
[2020-04-14] MEDS: Nicotine Lozenge mini 2 MG LOZNG.MINI MT PRN (09:17)
[2020-04-14 09:34] LABS: Large Platelets Present
[2020-04-14 10:45] LABS: EBV Capsid Ag IgG Ab Positive (Negative); EBV Capsid Ag IgM Ab Negative (Negative); Epstein-Barr Nuclear Antigen Positive (Negative)
[2020-04-14 10:51] LABS: Herpes Simplex Virus I IgG AB Positive (Negative); Herpes Simplex Virus II IgG AB Positive (Negative)
[2020-04-14 12:34] LABS: INR 1.28 (0.82-1.09)
[2020-04-14 15:12] LABS: CMV DNA DETECT/QT, P Undetected IU/mL (Undetected)
[2020-04-14] MEDS: Nicotine PATCH 21 MG/24 HR PATCH TRANSDERM SCH (15:34)
[2020-04-14] MEDS: Ondansetron 4 mg VIAL 2 MG/ML 2 ml VIAL IV PRN (21:43)
[2020-04-14 22:31] LABS: Anaplasma phagocytophilum Negative (Negative); B. miyamotoi PCR, B Negative (Negative); Babesia divergens/MO-1 Negative (Negative); Babesia ducani Negative (Negative); Ehrlichia chaffeensis Negative (Negative); Ehrlichia ewingii/canis Negative (Negative); Ehrlichia muris eauclairensis Negative (Negative)
[2020-04-15 00:35] LABS: INR 1.37 (0.82-1.09)
[2020-04-15 06:51] LABS: Hematocrit 43 % (42-52); Mean Corpuscular HGB Conc 35 g/dL (31-36); Mean Corpuscular Hemoglobin 32 pg (27-31); Mean Corpuscular Volume 91 fL (80-94); Mean Platelet Volume 11.1 fL (7.4-10.4); Platelet Count 116 10^3/uL (150-450); Red Cell Distribution Width 14 % (10-15); White Blood Count 4.9 10^3/uL (3.5-10.8)
[2020-04-15 07:08] LABS: BUN/Creatinine Ratio 11.3 (8-20); Calcium 8.1 mg/dL (8.6-10.3); EGFR African American 124.8 (>60); EGFR Non-African American 103.2 (>60); Globulin 2.9 g/dL (2-4); Total Bilirubin 8.5 mg/dL (0.2-1.0); Total Protein 5.9 g/dL (6.4-8.9)
[2020-04-15 07:25] LABS: ABS Basophils 0.1 10^3/ul (0-0.2); ABS Eosinophils 0.3 10^3/ul (0-0.6); ABS Lymphocytes 0.9 10^3/ul (1.0-4.8); ABS Monocytes 0.6 10^3/ul (0-0.8); Lymphocyte % 18.5 %; Nucleated Red Blood Cells % 0.1
[2020-04-15] MEDS: Aspirin EC 81 mg TAB.EC (enteric coated) PO SCH (08:28)
[2020-04-15] MEDS: Nicotine PATCH 21 MG/24 HR PATCH TRANSDERM SCH (08:28)
[2020-04-15 12:57] LABS: INR 1.3 (0.82-1.09)
[2020-04-15] MEDS ORDERED: Magnesium Hydroxide LIQ 30 ML UDC PO PRN (15:03)
[2020-04-15] MEDS ORDERED: Senna TAB 8.6 mg TAB PO PRN (15:03)
[2020-04-15] MEDS ORDERED: Polyethylene Glycol 3350 17 GM PACKET PO PRN (15:03)
[2020-04-16 00:45] LABS: INR 1.36 (0.82-1.09)
[2020-04-16] MEDS: Aspirin EC 81 mg TAB.EC (enteric coated) PO SCH (09:12)
[2020-04-16] MEDS: Nicotine PATCH 21 MG/24 HR PATCH TRANSDERM SCH (09:14)
[2020-04-16 11:56] VITALS: BP 114/65
[2020-04-16 13:05] LABS: Hematocrit 43 % (42-52); Hemoglobin 15.1 g/dL (14.0-18.0); Mean Corpuscular HGB Conc 35 g/dL (31-36); Mean Corpuscular Hemoglobin 32 pg (27-31); Mean Corpuscular Volume 92 fL (80-94); Mean Platelet Volume 10.6 fL (7.4-10.4); Platelet Count 160 10^3/uL (150-450); Red Blood Count 4.69 10^6 /uL (4.18-5.48); Red Cell Distribution Width 14 % (10-15); White Blood Count 5.2 10^3/uL (3.5-10.8)
[2020-04-16 13:14] LABS: INR 1.24 (0.82-1.09)
[2020-04-16 13:21] LABS: Albumin 3.1 g/dL (3.2-5.2); Calcium 8.5 mg/dL (8.6-10.3); EGFR African American 110.4 (>60); EGFR Non-African American 91.2 (>60); Globulin 3.2 g/dL (2-4); Potassium 3.9 mmol/L (3.5-5.0); Total Bilirubin 9.6 mg/dL (0.2-1.0); Total Protein 6.3 g/dL (6.4-8.9)
[2020-04-16 13:35] LABS: ABS Eosinophils 0.3 10^3/ul (0-0.6); ABS Lymphocytes 0.9 10^3/ul (1.0-4.8); ABS Monocytes 0.5 10^3/ul (0-0.8); ABS Neutrophils 3.5 10^3/ul (1.5-7.7); Eosinophil % 4.9 %; Lymphocyte % 17.5 %
== END 2020-04-16 16:50 | disposition home or self-care (01) ==
LOC: ED 11:52 → MED 11:52
PROVIDERS: ADMIT Internal Medicine; ATTEND Internal Medicine

== ENCOUNTER 2020-04-29 14:27 | Observation (INO) ==
[2020-04-29 15:14] LABS: ABS Eosinophils 0.1 10^3/ul (0-0.6); ABS Lymphocytes 1.3 10^3/ul (1.0-4.8); ABS Monocytes 0.6 10^3/ul (0-0.8); ABS Neutrophils 5.3 10^3/ul (1.5-7.7); Hematocrit 40 % (42-52); Hemoglobin 13.9 g/dL (14.0-18.0); Lymphocyte % 17.7 %; Mean Corpuscular HGB Conc 35 g/dL (31-36); Mean Corpuscular Hemoglobin 31 pg (27-31); Mean Corpuscular Volume 90 fL (80-94); Mean Platelet Volume 10.2 fL (7.4-10.4); Platelet Count 181 10^3/uL (150-450); Red Blood Count 4.44 10^6 /uL (4.18-5.48); Red Cell Distribution Width 15 % (10-15); White Blood Count 7.4 10^3/uL (3.5-10.8)
[2020-04-29 15:25] LABS: INR 0.93 (0.82-1.09)
[2020-04-29 15:35] LABS: Troponin I 0.01 ng/mL (<0.03)
[2020-04-29 15:36] LABS: Alcohol, S < 10 mg/dL (<10)
[2020-04-29 15:39] LABS: ALT 170 U/L (7-52); AST 64 U/L (13-39); Albumin 3.9 g/dL (3.2-5.2); Albumin/Globulin Ratio 1.1 (1-3); Alkaline Phosphatase 142 U/L (34-104); Anion Gap 4 mmol/L (2-11); BUN/Creatinine Ratio 14.8 (8-20); Blood Urea Nitrogen 13 mg/dL (6-24); CO2 Carbon Dioxide 25 mmol/L (22-32); Calcium 9.6 mg/dL (8.6-10.3); Chloride 106 mmol/L (101-111); EGFR African American 111.8 (>60); EGFR Non-African American 92.4 (>60); Globulin 3.6 g/dL (2-4); Glucose 109 mg/dL (70-100); Potassium 4.5 mmol/L (3.5-5.0); Sodium 135 mmol/L (135-145); Total Protein 7.5 g/dL (6.4-8.9)
[2020-04-29 18:24] LABS: Troponin I 0.03 ng/mL (<0.03)
[2020-04-29] MEDS ORDERED: Albuterol 2.5mg/3 ml (0.083%) NEB.SOLN INH PRN (19:45)
[2020-04-29] MEDS ORDERED: Ondansetron 4 mg VIAL 2 MG/ML 2 ml VIAL IV PRN (19:45)
[2020-04-29] MEDS: Nitro 2% OINT (Nitroglycerin) 1 INCH/PAK TOPICAL SCH (21:07)
[2020-04-29] MEDS: Heparin 5000 UNITS/ML 1 mL VIAL SUBCUT SCH (23:27)
[2020-04-29] MEDS: Nicotine PATCH 21 MG/24 HR PATCH TRANSDERM SCH (23:28)
[2020-04-30] MEDS ORDERED: Nitro OINT Remove TOPICAL SCH (02:00)
[2020-04-30 03:45] LABS: Urine Benzodiazepine Screen None Detected (None Detect); Urine Cannabinoids Screen Presumptive Positive (None Detect); Urine Opiates Screen None Detected (None Detect)
[2020-04-30 05:51] LABS: ABS Basophils 0.1 10^3/ul (0-0.2); ABS Eosinophils 0.3 10^3/ul (0-0.6); ABS Lymphocytes 1.9 10^3/ul (1.0-4.8); ABS Monocytes 0.6 10^3/ul (0-0.8); ABS Neutrophils 3.2 10^3/ul (1.5-7.7); Eosinophil % 5.3 %; Hematocrit 38 % (42-52); Hemoglobin 13.3 g/dL (14.0-18.0); Mean Corpuscular HGB Conc 35 g/dL (31-36); Mean Corpuscular Hemoglobin 32 pg (27-31); Mean Corpuscular Volume 91 fL (80-94); Mean Platelet Volume 10.7 fL (7.4-10.4); Nucleated Red Blood Cells % 0.2; Platelet Count 168 10^3/uL (150-450); Red Blood Count 4.13 10^6 /uL (4.18-5.48); Red Cell Distribution Width 15 % (10-15); White Blood Count 6.2 10^3/uL (3.5-10.8)
[2020-04-30] MEDS: Heparin 5000 UNITS/ML 1 mL VIAL SUBCUT SCH (05:58)
[2020-04-30 06:17] LABS: ALT 139 U/L (7-52); Albumin 3.3 g/dL (3.2-5.2); Alkaline Phosphatase 132 U/L (34-104); BUN/Creatinine Ratio 21.7 (8-20); Blood Urea Nitrogen 15 mg/dL (6-24); CO2 Carbon Dioxide 24 mmol/L (22-32); Calcium 9.3 mg/dL (8.6-10.3); Chloride 108 mmol/L (101-111); Cholesterol 197 mg/dL; EGFR African American 148.1 (>60); EGFR Non-African American 122.4 (>60); Globulin 3.4 g/dL (2-4); Glucose 104 mg/dL (70-100); HDL Cholesterol 19.1 mg/dL; LDL Cholesterol 101 mg/dL; Sodium 136 mmol/L (135-145); Total Protein 6.7 g/dL (6.4-8.9); Triglycerides 387 mg/dL
[2020-04-30 06:57] LABS: Anion Gap 4 mmol/L (2-11)
[2020-04-30 07:18] LABS: INR 0.92 (0.82-1.09)
[2020-04-30 08:24] LABS: Potassium Redraw 4.1 mmol/L (3.5-5.0)
[2020-04-30] MEDS ORDERED: Aspirin EC 81 mg TAB.EC (enteric coated) PO SCH (09:00)
[2020-04-30] MEDS: Nicotine PATCH 21 MG/24 HR PATCH TRANSDERM SCH (09:09)
[2020-04-30] MEDS: Nitro 2% OINT (Nitroglycerin) 1 INCH/PAK TOPICAL SCH (09:31)
[2020-04-30 12:18] VITALS: BP 133/69
== END 2020-04-30 13:18 | disposition left against medical advice (07) ==
LOC: ED 14:27 → MEDTELE 14:27
PROVIDERS: ADMIT Pediatrics; ATTEND Internal Medicine